=== PATIENT | male | born 1975 | race Caucasian/White ===

== ENCOUNTER → 2017-11-24 | Outpatient (CLI) | payer BC ==
--- NOTE | 2017-11-25 07:06 | US ---
EXAMINATION TYPE: US kidneys/renal and bladder DATE OF EXAM: 11/24/2017 COMPARISON: CT CLINICAL HISTORY: N13.30 Hydronephrosis. History of hydro, and recent left lithotripsy in October EXAM MEASUREMENTS: Right Kidney: 13.0 x 5.9 x 5.7 cm Left Kidney: 12.7 x 5.8 x 5.8 cm Larger pt body habitus, difficult to penetrate Right Kidney: Visualized portions appeared wnl Left Kidney: No evidence of hydro, layering calcs at upper pole= 3.2 cm. Again these are likely withi n a calyceal diverticulum. Bladder: wnl Bilateral Jets seen: Yes There is no evidence for hydronephrosis at this point in time. No nephrolithiasis is seen. No jeremiah s are identified. The urinary bladder is anechoic. Bilateral ureteral jets are seen. IMPRESSION: 1. No evidence of hydronephrosis bilaterally. The previously identified mild left hydronephrosis has resolved in the interim in comparison to the CT dated 10/30/2017. 2. 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
== END | disposition home or self-care (01) ==
LOC: RADUSWWP 16:05
PROVIDERS: ATTEND Urology
DX: N13.30 Unspecified hydronephrosis (principal)
CPT/HCPCS: 76770

== ENCOUNTER → 2018-01-04 | Outpatient (CLI) | payer BC ==
[2018-01-04 16:33] LABS: Calcium 9.7 mg/dL (8.4-10.2); Uric Acid 6.8 mg/dL (3.5-8.5)
== END | disposition home or self-care (01) ==
LOC: LABWHC1 15:35
PROVIDERS: ATTEND Urology
DX: N20.0 Calculus of kidney (principal)
CPT/HCPCS: 36415; 82310; 83970; 84550

== ENCOUNTER → 2018-05-03 | Outpatient (CLI) | payer BC ==
[2018-05-03 10:10] LABS: Basophils # (A) 0.1 k/uL (0-0.2); Basophils % (A) 1 %; Eosinophils # (A) 0.1 k/uL (0-0.7); Eosinophils % (A) 1 %; HCT 43.1 % (39.0-53.0); HGB 14.7 gm/dL (13.0-17.5); Lymphocytes # (A) 1.7 k/uL (1.0-4.8); Lymphocytes % (A) 20 %; MCH 30.8 pg (25.0-35.0); MCV 90.6 fL (80.0-100.0); Mean Platelet Volume 7.9; Monocytes # (A) 0.6 k/uL (0-1.0); Monocytes % (A) 7 %; Neutrophils # (A) 5.9 k/uL (1.3-7.7); Neutrophils % (A) 70 %; Platelet Count 273 k/uL (150-450); RBC 4.76 m/uL (4.30-5.90); WBC 8.4 k/uL (3.8-10.6)
[2018-05-03 17:57] LABS: Albumin 4.5 g/dL (3.80-4.90); Albumin/Globulin Ratio 1.8 (1.20-2.10); Anion Gap 9.7 mmol/L (4.00-12.00); Calcium 9.3 mg/dL (8.7-10.3); Carbon Dioxide 24.3 mmol/L (21.6-31.8); Globulin 2.5 g/dL (2.1-3.7); LDL Cholesterol,Calculated 117.6 mg/dL (0.0-131.0); Potassium 4.4 mmol/L (3.5-5.5); Total Bilirubin 0.6 mg/dL (0.3-1.2); VLDL Calculation 33.4 mg/dL (5.00-40.00)
== END | disposition home or self-care (01) ==
LOC: LABWHC1 08:44
PROVIDERS: ATTEND Family Medicine
DX: E78.2 Mixed hyperlipidemia (principal); E03.9 Hypothyroidism, unspecified; I10 Essential (primary) hypertension
CPT/HCPCS: 36415; 80053; 80061; 84443; 85025

== ENCOUNTER 2020-11-04 20:57 | Inpatient (IN) | payer OTHER ==
[2020-11-04] MEDS ORDERED: ACETAMINOPHEN TAB 325 MG TAB PO STA (21:38)
[2020-11-04] MEDS ORDERED: IBUPROFEN 600 MG TAB PO STA (21:38)
[2020-11-04] MEDS ORDERED: SODIUM CHLORIDE 0.9% 1,000 ML IV STA (22:20)
[2020-11-04] MEDS ORDERED: DEXAMETHASONE SOD PHOSPHATE 10 MG/ML 1 ML VIAL IV STA (22:20)
[2020-11-04] MEDS ORDERED: ACETAMINOPHEN TAB 500 MG TAB PO STA (22:21)
[2020-11-04] MEDS ORDERED: KETOROLAC 15 MG/ML 1 ML VIAL IVP STA (22:21)
--- NOTE | 2020-11-04 22:23 | ED ---
SOB HPI - General Chief Complaint: Shortness of Breath Stated Complaint: COVID+,SOB Time Seen by Provider: 11/04/20 22:20 Source: patient, RN notes reviewed, old records reviewed Mode of arrival: ambulatory Limitations: no limitations - History of Present Illness Initial Comments: This is a 45-year-old male DF for evaluation severe shortness of breath. Patient is wrong 10 days positive for coronavirus with increasing weakness and severe shortness of breath. Positive fever weakness not feeling well. MD Complaint: shortness of breath, cough, pain with inspiration -: days(s) (10) Radiation: back Severity: severe Severity scale (1-10): 9 Quality: dull, aching Consistency: constant Improves With: nothing Worsens With: nothing Known History Of: other (High blood pressure high cholesterol) Context: recent URI, recent illness Associated Symptoms: chest pain, fever Treatments Prior to Arrival: none - Related Data Home Medications Medication Instructions Recorded Confirmed Fenofibrate 130 mg PO DAILY 07/19/17 11/04/20 Levothyroxine Sodium 200 mcg PO DAILY 07/19/17 11/04/20 Losartan Potassium 100 mg PO DAILY 11/04/20 11/04/20 hydroCHLOROthiazide 25 mg PO DAILY 11/04/20 11/04/20 Allergies Allergy/AdvReac Type Severity Reaction Status Date / Time methimazole [From Tapazole] Allergy Rash/Hives Verified 11/04/20 23:20 Penicillins Allergy Rash/Hives Verified 11/04/20 23:20 Review of Systems ROS Statement: Those systems with pertinent positive or pertinent negative responses have been documented in the HPI. ROS Other: All systems not noted in ROS Statement are negative. Past Medical History Past Medical History: Hyperlipidemia, Hypertension, Thyroid Disorder Additional Past Medical History / Comment(s): Prer diabetes, allergic Rhinitis, Cholecysytis, Sarcoidosis History of Any Multi-Drug Resistant Organisms: None Reported Past Surgical History: Cholecystectomy, Hernia Repair Additional Past Surgical History / Comment(s): thyroid ablation, umbilical hernia repair Past Anesthesia/Blood Transfusion Reactions: No Reported Reaction Past Psychological History: No Psychological Hx Reported Smoking Status: Former smoker Past Alcohol Use History: None Reported Past Drug Use History: None Reported General Exam Limitations: no limitations General appearance: alert, anxious, in distress Head exam: Present: atraumatic, normocephalic, normal inspection Eye exam: Present: normal appearance, PERRL, EOMI. Absent: scleral icterus, conjunctival injection, periorbital swelling ENT exam: Present: normal exam, mucous membranes dry Neck exam: Present: normal inspection. Absent: tenderness, meningismus, lymphadenopathy Respiratory exam: Present: respiratory distress, chest wall tenderness, accessory muscle use, decreased breath sounds, prolonged expiratory. Absent: wheezes, rales, rhonchi, stridor Cardiovascular Exam: Present: normal rhythm, tachycardia, normal heart sounds. Absent: systolic murmur, diastolic murmur, rubs, gallop, clicks GI/Abdominal exam: Present: soft, normal bowel sounds. Absent: distended, tenderness, guarding, rebound, rigid Extremities exam: Present: normal inspection, full ROM, normal capillary refill. Absent: tenderness, pedal edema, joint swelling, calf tenderness Back exam: Present: normal inspection Neurological exam: Present: alert, oriented X3, CN II-XII intact Psychiatric exam: Present: normal affect, normal mood Skin exam: Present: warm, dry, intact, normal color. Absent: rash Course Vital Signs 11/04/20 21:32 Temperature 102.4 F H Pulse Rate 103 H Respiratory 22 Rate Blood Pressure 185/88 O2 Sat by Pulse 87 L Oximetry - Reevaluation(s) Reevaluation #1: 11/04/20 22:23 Medical records reviewed Reevaluation #2: 11/05/20 01:02 Patient has mild no improvement on supplemental O2 but oxygenation has improved Reevaluation #3: 11/05/20 01:03 Focal patient regarding results of findings questions answered - Consultations Consultation #1: Spoke with KEELEY shin for admission Medical Decision Making - Medical Decision Making 45 male DEL with severe coronavirus infection arms on x-ray patient to be admitted for severe coronavirus and pulmonary support. - Lab Data Result diagrams: 11/04/20 22:51 11/04/20 22:51 Lab Results 11/04/20 11/04/20 11/04/20 Range/Units 22:51 22:51 23:14 WBC 6.1 (3.8-10.6) k/uL RBC 4.60 (4.30-5.90) m/uL Hgb 13.9 (13.0-17.5) gm/dL Hct 40.3 (39.0-53.0) % MCV 87.6 (80.0-100.0) fL MCH 30.3 (25.0-35.0) pg MCHC 34.6 (31.0-37.0) g/dL RDW 12.4 (11.5-15.5) % Plt Count 222 (150-450) k/uL MPV 8.4 Neutrophils % 89 % Lymphocytes % 7 % Monocytes % 3 % Eosinophils % 0 % Basophils % 0 % Neutrophils # 5.4 (1.3-7.7) k/uL Lymphocytes # 0.5 L (1.0-4.8) k/uL Monocytes # 0.2 (0-1.0) k/uL Eosinophils # 0.0 (0-0.7) k/uL Basophils # 0.0 (0-0.2) k/uL PT 10.0 (9.0-12.0) sec INR 0.9 (<1.2) APTT 24.1 (22.0-30.0) sec Sodium 136 L (137-145) mmol/L Potassium 3.9 (3.5-5.1) mmol/L Chloride 101 (98-107) mmol/L Carbon Dioxide 26 (22-30) mmol/L Anion Gap 9 mmol/L BUN 11 (9-20) mg/dL Creatinine 0.70 (0.66-1.25) mg/dL Est GFR (CKD-EPI)AfAm >90 (>60 ml/min/1.73 sqM) Est GFR (CKD-EPI)NonAf >90 (>60 ml/min/1.73 sqM) Glucose 103 H (74-99) mg/dL Plasma Lactic Acid Fan (0.7-2.0) mmol/L Calcium 8.5 (8.4-10.2) mg/dL Phosphorus 3.6 (2.5-4.5) mg/dL Magnesium 1.9 (1.6-2.3) mg/dL Total Bilirubin 0.6 (0.2-1.3) mg/dL AST 115 H (17-59) U/L ALT 129 H (4-49) U/L Alkaline Phosphatase 50 (38-126) U/L Lactate Dehydrogenase 1435 H (313-618) U/L Troponin I (0.000-0.034) ng/mL C-Reactive Protein 18.7 H (<1.0) mg/dL Total Protein 6.7 (6.3-8.2) g/dL Albumin 3.6 (3.5-5.0) g/dL 11/04/20 11/04/20 Range/Units 23:14 23:14 WBC (3.8-10.6) k/uL RBC (4.30-5.90) m/uL Hgb (13.0-17.5) gm/dL Hct (39.0-53.0) % MCV (80.0-100.0) fL MCH (25.0-35.0) pg MCHC (31.0-37.0) g/dL RDW (11.5-15.5) % Plt Count (150-450) k/uL MPV Neutrophils % % Lymphocytes % % Monocytes % % Eosinophils % % Basophils % % Neutrophils # (1.3-7.7) k/uL Lymphocytes # (1.0-4.8) k/uL Monocytes # (0-1.0) k/uL Eosinophils # (0-0.7) k/uL Basophils # (0-0.2) k/uL PT (9.0-12.0) sec INR (<1.2) APTT (22.0-30.0) sec Sodium (137-145) mmol/L Potassium (3.5-5.1) mmol/L Chloride (98-107) mmol/L Carbon Dioxide (22-30) mmol/L Anion Gap mmol/L BUN (9-20) mg/dL Creatinine (0.66-1.25) mg/dL Est GFR (CKD-EPI)AfAm (>60 ml/min/1.73 sqM) Est GFR (CKD-EPI)NonAf (>60 ml/min/1.73 sqM) Glucose (74-99) mg/dL Plasma Lactic Acid Fan 1.1 (0.7-2.0) mmol/L Calcium (8.4-10.2) mg/dL Phosphorus (2.5-4.5) mg/dL Magnesium (1.6-2.3) mg/dL Total Bilirubin (0.2-1.3) mg/dL AST (17-59) U/L ALT (4-49) U/L Alkaline Phosphatase (38-126) U/L Lactate Dehydrogenase (313-618) U/L Troponin I <0.012 (0.000-0.034) ng/mL C-Reactive Protein (<1.0) mg/dL Total Protein (6.3-8.2) g/dL Albumin (3.5-5.0) g/dL - Radiology Data Radiology results: pending, report reviewed (Chest x-rays positive for coronavirus type changes, ARDS symptoms.), image reviewed Critical Care Time Critical Care Time: Yes Total Critical Care Time: 31 Disposition Clinical Impression: Coronavirus infection, Pneumonia due to COVID-19 virus, Acute respiratory failure, Hypoxia Disposition: ADMITTED IP TO THIS [facility] Condition: Serious Is patient prescribed a controlled substance at d/c from ED?: No Referrals: Marisol Shannon DO [Primary Care Provider] - 1-2 days
--- NOTE | 2020-11-04 22:43 | XR ---
EXAMINATION TYPE: XR chest 2V DATE OF EXAM: 11/04/2020 COMPARISON: 08/28/2009 HISTORY: Difficulty breathing TECHNIQUE: 2 views FINDINGS: There is patchy bilateral pulmonary interstitial and airspace infiltrates. Heart size is no rmal. There is no pleural effusion. IMPRESSION: There is new bilateral extensive pneumonia compared to old exam. Normal heart.
[2020-11-04 23:12] LABS: Basophils % (A) 0 %; Eosinophils % (A) 0 %; HCT 40.3 % (39.0-53.0); HGB 13.9 gm/dL (13.0-17.5); Lymphocytes # (A) 0.5 k/uL (1.0-4.8); Lymphocytes % (A) 7 %; MCH 30.3 pg (25.0-35.0); MCHC 34.6 g/dL (31.0-37.0); MCV 87.6 fL (80.0-100.0); Mean Platelet Volume 8.4; Monocytes # (A) 0.2 k/uL (0-1.0); Monocytes % (A) 3 %; Neutrophils # (A) 5.4 k/uL (1.3-7.7); Neutrophils % (A) 89 %; Platelet Count 222 k/uL (150-450); RDW 12.4 % (11.5-15.5); WBC 6.1 k/uL (3.8-10.6)
[2020-11-04 23:42] LABS: INR 0.9 (<1.2); Partial Thromboplastin Time 24.1 sec (22.0-30.0)
[2020-11-05 00:22] LABS: ALT 129 U/L (4-49); AST 115 U/L (17-59); African American GFR (CKD) >90 (>60 ml/min/1.73 sqM); Albumin 3.6 g/dL (3.5-5.0); Alkaline Phosphatase 50 U/L (38-126); Anion Gap 9 mmol/L; Blood Urea Nitrogen 11 mg/dL (9-20); Calcium 8.5 mg/dL (8.4-10.2); Carbon Dioxide 26 mmol/L (22-30); Chloride 101 mmol/L (98-107); Glucose 103 mg/dL (74-99); LDH 1435 U/L (313-618); Magnesium 1.9 mg/dL (1.6-2.3); Non-African American GFR(CKD) >90 (>60 ml/min/1.73 sqM); Phosphorus 3.6 mg/dL (2.5-4.5); Potassium 3.9 mmol/L (3.5-5.1); Sodium 136 mmol/L (137-145); Total Bilirubin 0.6 mg/dL (0.2-1.3); Total Protein 6.7 g/dL (6.3-8.2)
[2020-11-05 00:37] LABS: C Reactive Protein 18.7 mg/dL (<1.0)
[2020-11-05] MEDS ORDERED: ACETAMINOPHEN TAB 325 MG TAB PO PRN (00:59)
[2020-11-05] MEDS ORDERED: NALOXONE 0.4 MG/ML 1 ML VIAL IV PRN (00:59)
[2020-11-05] MEDS ORDERED: MORPHINE SULFATE 4 MG/ML SYRINGE IV PRN (00:59)
[2020-11-05] MEDS ORDERED: ONDANSETRON 4 MG/2 ML VIAL IVP PRN (00:59)
--- NOTE | 2020-11-05 02:35 | CT ---
EXAM: CT Angiography Chest With Intravenous Contrast CLINICAL HISTORY: ITS.REASON CT Reason: pe TECHNIQUE: Axial computed tomographic angiography images of the chest with intravenous contrast. CTDI is 26.07 mGy and DLP is 749.4 mGy-cm. This CT exam was performed using one or more of the following dose reduction techniques: automated exposure control, adjustment of the mA and/or kV according to patient size, and/or use of iterative reconstruction technique. MIP reconstructed images were created and reviewed. COMPARISON: Chest x-ray from November 04, 2020 FINDINGS: Pulmonary arteries: The pulmonary arterial tree is well opacified with contrast. No pulmonary emboli are identified. Aorta: The thoracic aorta is nondilated. There is no aneurysm or dissection. Lungs: There are moderate scattered patchy groundglass opacities and interstitial infiltrates throughout the mid to lower lungs bilaterally suggesting Covid 19 pneumonia. Pleural space: Unremarkable. No significant effusion. No pneumothorax. Heart: Unremarkable. No cardiomegaly. No significant pericardial effusion. No evidence of RV dysfunction. Mediastinum: Bilateral hilar and mediastinal lymphadenopathy is present measuring up to 2.3 cm in short axis diameter. Bones/joints: No acute fracture. No dislocation. Soft tissues: Unremarkable. Lymph nodes: Hilar and mediastinal lymphadenopathy. Gallbladder and bile ducts: Limited images of the upper abdomen demonstrate severe fatty infiltration of the liver and previous cholecystectomy. IMPRESSION: 1. There are moderate scattered patchy groundglass opacities and interstitial infiltrates throughout the mid to lower lungs bilaterally suggesting Covid 19 pneumonia. 2. Bilateral hilar and mediastinal lymphadenopathy is present measuring up to 2.3 cm in short axis diameter. 3. No evidence of pulmonary embolism or acute aortic abnormality.
[2020-11-05] MEDS: SODIUM CHLORIDE 0.9% 1,000 ML IV SCH ×3 (03:09→20:10)
[2020-11-05] MEDS ORDERED: ZINC SULFATE 220 MG CAP PO SCH (09:00)
--- NOTE | 2020-11-05 10:05 | P.CNPUL ---
History of Present Illness Consult date: 11/05/20 Requesting physician: Erasto Snow Reason for consult: dyspnea, abnormal CXR/CT Chief complaint: Shortness of breath, headache, cough History of present illness: This is a very pleasant 45-year-old gentleman who follows with Dr. Foote as his primary care provider. He has a history of hyperlipidemia, hypertension, hypothyroidism, sarcoidosis previously treated by Dr. Rodriguez in 2009 with no pu lmonary symptoms since then. On October 25 patient developed a headache, loss of smell, worsening shortness of breath. He was tested positive for COVID-19 on 10/27/2020. His shortness of breath has progressed and gotten worse and he presented here to the emergency room yesterday. Chest x-ray reveals bilateral extensive pneumonia. CT angiogram ruled out pulmonary embolism. There is moderate scattered patchy groundglass opacities and interstitial infiltrates consistent with COVID-19 pneumonia. Suspect reactive bilateral hilar and mediastinal lymphadenopathy measuring up to 2.3 cm. He is seen today in consultation in the emergency room. He is currently sitting up on the stretcher. Awake and alert. In mild respiratory distress. Requiring 6 L high flow nasal cannula to maintain O2 saturation in the low 90s. T-max of 102.4. White count 6.1. Hemoglobin 13.9. Lymphocytes 0.5. D-dimer 0.76. Sodium 136. Potassium 3.9. Creatinine 0.70. Glucose 103. AST 115. ALT 129. LDH 1435. C-reactive protein 18.7. Troponin negative 1. He has been initiated on dexamethasone, Lovenox, vitamin supplements. 0.9 normal saline at 100 ML's per hour. Review of Systems REVIEW OF SYSTEMS: CONSTITUTIONAL: Denies any recent significant weight loss or weight gain. EYES: Denies change in vision. EARS, NOSE, MOUTH, THROAT: Positive for headaches, loss of smell. CARDIOVASCULAR: Denies chest pain, palpitations or syncopal episodes. RESPIRATORY: Positive for shortness of breath, cough, congestion or hemoptysis. GASTROINTESTINAL: Denies change in appetite, denies abdominal pain GENITOURINARY: Denies hematuria, denies infections. MUSKULOSKELETAL: Denies pain, denies swelling. INTEGUMENTARY: Denies rash, denies eczema. NEUROLOGICAL: Denies recent memory loss, no recent seizure activity. PSYCHIATRIC: Denies anxiety, denies depression. HEMATOLOGIC/LYMPHATIC: Denies anemia, denies enlarged lymph nodes. Past Medical History Past Medical History: Hyperlipidemia, Hypertension, Thyroid Disorder Additional Past Medical History / Comment(s): Prer diabetes, allergic Rhinitis, Cholecysytis, Sarcoidosis History of Any Multi-Drug Resistant Organisms: None Reported Past Surgical History: Cholecystectomy, Hernia Repair Additional Past Surgical History / Comment(s): thyroid ablation, umbilical hernia repair Past Anesthesia/Blood Transfusion Reactions: No Reported Reaction Past Psychological History: No Psychological Hx Reported Smoking Status: Former smoker Past Alcohol Use History: None Reported Past Drug Use History: None Reported Medications and Allergies Home Medications Medication Instructions Recorded Confirmed Type Fenofibrate 130 mg PO DAILY 07/19/17 11/04/20 History Levothyroxine Sodium 200 mcg PO DAILY 07/19/17 11/04/20 History Losartan Potassium 100 mg PO DAILY 11/04/20 11/04/20 History hydroCHLOROthiazide 25 mg PO DAILY 11/04/20 11/04/20 History Allergies Allergy/AdvReac Type Severity Reaction Status Date / Time methimazole [From Tapazole] Allergy Rash/Hives Verified 11/04/20 23:20 Penicillins Allergy Rash/Hives Verified 11/04/20 23:20 Physical Exam Vitals: Vital Signs Temp Pulse Resp BP Pulse Ox 11/05/20 06:00 97.8 F 87 20 133/89 93 L 11/05/20 05:00 88 18 93 L 11/05/20 04:00 69 22 91 L 11/05/20 03:00 79 22 126/79 93 L 11/05/20 02:00 96 11/05/20 01:36 97.4 F L 82 18 137/81 100 11/04/20 21:32 102.4 F H 103 H 22 185/88 87 L Intake and Output 11/04/20 11/05/20 11/05/20 22:59 06:59 14:59 Other: Weight 115.666 kg GENERAL EXAM: Alert, very pleasant 45-year-old gentleman, on 6 L nasal cannula, fairly comfortable in no apparent distress. HEAD: Normocephalic. EYES: Normal reaction of pupils, equal size. NOSE: Clear with pink turbinates. THROAT: No erythema or exudates. NECK: No masses, no JVD. CHEST: No chest wall deformity. LUNGS: Equal air entry with crackles in the posterior bases. CVS: S1 and S2 normal with no audible murmur, regular rhythm. ABDOMEN: No hepatosplenomegaly, normal bowel sounds, no guarding or rigidity. SPINE: No scoliosis or deformity SKIN: No rashes CENTRAL NERVOUS SYSTEM: No focal deficits, tone is normal in all 4 extremities. EXTREMITIES: There is no peripheral edema. No clubbing, no cyanosis. Peripheral pulses are intact. Results - Laboratory Findings CBC and BMP: 11/04/20 22:51 11/04/20 22:51 PT/INR, D-dimer PT 10.0 sec (9.0-12.0) 11/04/20 23:14 INR 0.9 (<1.2) 11/04/20 23:14 D-Dimer 0.76 mg/L FEU (<0.60) H 11/05/20 09:03 Abnormal lab findings: Abnormal Labs 11/04/20 11/04/20 11/05/20 22:51 22:51 09:03 Lymphocytes # 0.5 L D-Dimer 0.76 H Sodium 136 L Glucose 103 H AST 115 H ALT 129 H Lactate Dehydrogenase 1435 H C-Reactive Protein 18.7 H - Diagnostic Findings Chest x-ray: image reviewed CT scan - chest: image reviewed Assessment and Plan Assessment: 1 Acute hypoxemic respiratory failure secondary to acute COVID-19 pneumonia. Outside the window for Remdesivir 2 Elevated inflammatory markers secondary to above 3 Mild transaminitis secondary to above 4 History of sarcoidosis, inactive and stable 5 Hypertension 6 Hypothyroidism 7 Hyperlipidemia Plan: The patient was seen and evaluated by Dr. Rodriguez Chest x-ray, CAT scans and labs reviewed Continue Lovenox, Decadron, vitamin supplements Follow-up inflammatory markers in a.m. Titrate the FiO2 as tolerated We'll continue to follow and make further recommendations based on his clinical status I, the cosigning physician, performed a history & physical examination of the patient. Lungs sounds are clear bilateral posterior bases. Maintaining good O2 saturations in the 90s on 6 L high flow nasal cannula. I discussed the assessment and plan of care with my nurse practitioner, Lizzie Rodriguez. I attest to the above consultation as dictated by her. Time with Patient: Greater than 30
[2020-11-05 10:09] LABS: C Reactive Protein 17.6 mg/dL (<1.0)
[2020-11-05] MEDS: ASCORBIC ACID 500 MG TAB PO SCH ×2 (10:42→20:10)
[2020-11-05] MEDS: dexAMETHasone 2 MG TAB PO SCH (10:42)
[2020-11-05] MEDS: CHOLECALCIFEROL 25 MCG (1000 IU) TABLET PO SCH (10:45)
[2020-11-05] MEDS: ENOXAPARIN 40 MG/0.4 ML SYRINGE SQ SCH (10:45)
[2020-11-05] MEDS: FAMOTIDINE 20 MG TAB PO SCH ×2 (12:04→20:10)
--- NOTE | 2020-11-05 13:05 | P.HPIM ---
History of Present Illness Patient is a 45-year-old pleasant male came in with complaints of cough and shortness of breath for about 10 days and patient was diagnosed with COVID-19 on 27 of October. Patient can use to get worse because of which came to ER and chest x-ray revealed bilateral extensive pneumonia CT angiogram was done in the pulmonary embolism was ruled out patient does have reactive hilar lymphadenopathy as well. Patient is presently on 6 L of oxygen with elevated inflammatory markers and liver liver enzymes and a negative troponin d-dimer of 0.76. Patient was started on Decadron Lovenox vitamin supplements and normal saline. Patient also had some diarrhea yesterday Review of Systems REVIEW OF SYSTEMS: CONSTITUTIONAL: As mentioned in HPI HEENT: No recent visual problems or hearing problems. Denied any sore throat. CARDIOVASCULAR: No chest pain, orthopnea, PND, no palpitations, no syncope. PULMONARY: no hemoptysis. GASTROINTESTINAL: no nausea, no vomiting, no abdominal pain. NEUROLOGICAL: No headaches, no weakness, no numbness. HEMATOLOGICAL: Denies any bleeding or petechiae. GENITOURINARY: Denies any burning micturition, frequency, or urgency. MUSCULOSKELETAL/RHEUMATOLOGICAL: Denies any joint pain, swelling, or any muscle pain. ENDOCRINE: Denies any polyuria or polydipsia. The rest of the 14-point review of systems is negative. Past Medical History Past Medical History: Hyperlipidemia, Hypertension, Thyroid Disorder Additional Past Medical History / Comment(s): Prer diabetes, allergic Rhinitis, Cholecysytis, Sarcoidosis History of Any Multi-Drug Resistant Organisms: None Reported Past Surgical History: Cholecystectomy, Hernia Repair Additional Past Surgical History / Comment(s): thyroid ablation, umbilical hernia repair Past Anesthesia/Blood Transfusion Reactions: No Reported Reaction Past Psychological History: No Psychological Hx Reported Smoking Status: Former smoker Past Alcohol Use History: None Reported Past Drug Use History: None Reported Medications and Allergies Home Medications Medication Instructions Recorded Confirmed Type Fenofibrate 130 mg PO DAILY 07/19/17 11/04/20 History Levothyroxine Sodium 200 mcg PO DAILY 07/19/17 11/04/20 History Losartan Potassium 100 mg PO DAILY 11/04/20 11/04/20 History hydroCHLOROthiazide 25 mg PO DAILY 11/04/20 11/04/20 History Allergies Allergy/AdvReac Type Severity Reaction Status Date / Time methimazole [From Tapazole] Allergy Rash/Hives Verified 11/04/20 23:20 Penicillins Allergy Rash/Hives Verified 11/04/20 23:20 Physical Exam Vitals: Vital Signs Temp Pulse Pulse Resp BP BP Pulse Ox 11/05/20 12:26 98.2 F 81 24 159/88 86 L 11/05/20 11:59 97.6 F 88 16 144/90 91 L 11/05/20 10:41 97.6 F 88 16 144/90 90 L 11/05/20 06:00 97.8 F 87 20 133/89 93 L 11/05/20 05:00 88 18 93 L 11/05/20 04:00 69 22 91 L 11/05/20 03:00 79 22 126/79 93 L 11/05/20 02:00 96 11/05/20 01:36 97.4 F L 82 18 137/81 100 11/04/20 21:32 102.4 F H 103 H 22 185/88 87 L Intake and Output 11/04/20 11/05/20 11/05/20 22:59 06:59 14:59 Other: Weight 115.666 kg 115.666 kg PHYSICAL EXAMINATION: GENERAL: The patient is alert and oriented x3, not in any acute distress. Obese HEENT: Pupils are round and equally reacting to light. EOMI. No scleral icterus. No conjunctival pallor. Normocephalic, atraumatic. No pharyngeal erythema. No thyromegaly. CARDIOVASCULAR: S1 and S2 present. No murmurs, rubs, or gallops. PULMONARY: Chest is clear to auscultation, no wheezing or crackles. ABDOMEN: Soft, nontender, nondistended, normoactive bowel sounds. No palpable organomegaly. MUSCULOSKELETAL: No joint swelling or deformity. EXTREMITIES: No cyanosis, clubbing, or pedal edema. NEUROLOGICAL: Gross neurological examination did not reveal any focal deficits. SKIN: No rashes. Note: Because of COVID 19 isolation, some of the history and physical exam findings are indirect and obtained from nursing staff, and other physician examinations to avoid unnecessary contact with the patient. Results CBC & Chem 7: 11/04/20 22:51 11/04/20 22:51 Labs: Abnormal Lab Results - Last 24 Hours (Table) 11/04/20 11/04/20 11/05/20 Range/Units 22:51 22:51 09:03 Lymphocytes # 0.5 L (1.0-4.8) k/uL D-Dimer 0.76 H (<0.60) mg/L FEU Sodium 136 L (137-145) mmol/L Glucose 103 H (74-99) mg/dL AST 115 H (17-59) U/L ALT 129 H (4-49) U/L Lactate Dehydrogenase 1435 H (313-618) U/L C-Reactive Protein 18.7 H (<1.0) mg/dL 11/05/20 Range/Units 09:03 Lymphocytes # (1.0-4.8) k/uL D-Dimer (<0.60) mg/L FEU Sodium (137-145) mmol/L Glucose (74-99) mg/dL AST (17-59) U/L ALT (4-49) U/L Lactate Dehydrogenase 1254 H (313-618) U/L C-Reactive Protein 17.6 H (<1.0) mg/dL Thrombosis Risk Factor Assmnt - Choose All That Apply Each Factor Represents 1 point: Age 41-60 years Thrombosis Risk Factor Assessment Total Risk Factor Score: 1 Thrombosis Risk Factor Assessment Level: Low Risk Assessment and Plan Plan: -Acute hypoxic respiratory failure secondary to COVID-19 pneumonia: Patient is outside of the window for from this event and patient is presently on Decadron, vitamins. -Elevated liver enzymes her transaminitis secondary to COVID-19 -Hypertension -Hypothyroidism -Hyperlipidemia -History of sarcoidosis. -Due to prophylaxis with history of prophylaxis with Protonix
[2020-11-06] MEDS: SODIUM CHLORIDE 0.9% 1,000 ML IV SCH ×2 (05:26→17:22)
[2020-11-06] MEDS: CHOLECALCIFEROL 25 MCG (1000 IU) TABLET PO SCH (07:48)
[2020-11-06] MEDS: ASCORBIC ACID 500 MG TAB PO SCH ×2 (07:48→22:40)
[2020-11-06] MEDS: FAMOTIDINE 20 MG TAB PO SCH ×2 (07:49→22:40)
[2020-11-06] MEDS: ENOXAPARIN 40 MG/0.4 ML SYRINGE SQ SCH (07:50)
[2020-11-06] MEDS: dexAMETHasone 2 MG TAB PO SCH (07:50)
[2020-11-06] MEDS: ZINC SULFATE 220 MG CAP PO SCH (07:54)
[2020-11-06 10:33] LABS: Basophils # (A) 0.01 X 10*3/uL (0.00-0.10); Basophils % (A) 0.1 %; Eosinophils # (A) 0 X 10*3/uL (0.04-0.35); Eosinophils % (A) 0 %; HCT 36.6 % (39.6-50.0); Lymphocytes # (A) 0.69 X 10*3/uL (0.90-5.00); Lymphocytes % (A) 4.7 %; MCH 29.6 pg (27.0-32.0); MCHC 32.8 g/dL (32.0-37.0); MCV 90.4 fL (80.0-97.0); Mean Platelet Volume 11.2 fL (9.5-12.2); Monocytes # (A) 0.56 X 10*3/uL (0.20-1.00); Monocytes % (A) 3.8 %; Neutrophils # (A) 13.19 X 10*3/uL (1.80-7.70); Neutrophils % (A) 90.6 %; Platelet Count 293 X 10*3/uL (140-440); RBC 4.05 X 10*6/uL (4.40-5.60); RDW 13.4 % (11.5-14.5); WBC 14.56 X 10*3/uL (4.50-10.00)
--- NOTE | 2020-11-06 15:16 | P.PN ---
Subjective 45-year-old male admitted for Covid 19 pneumonia, out of window for Remdesivir. Patient respiratory status has worsened and the patient is presently on 9 L as opposed to 6 L of oxygen as today patient feels little bit better clinically. Still bit short of breath. Constitutional: Denied any fatigue denied any fever. Cardio vascular: denied any chest pain, palpitations Gastrointestinal denied any nausea vomiting Pulmonary: As mentioned in the interval history Neurologic denied any new focal deficits All inpatient medications were reviewed and appropriate changes in these medications as dictated in the interval history and assessment and plan. Objective - Vital Signs Vital signs: Vital Signs Temp 98.2 F 11/06/20 14:00 Pulse 85 11/06/20 14:00 Resp 25 H 11/06/20 14:00 BP 163/85 11/06/20 14:00 Pulse Ox 92 L 11/06/20 14:00 Intake & Output 11/05/20 11/06/20 11/06/20 18:59 06:59 18:59 Output Total 450 Balance -450 Output: Urine 450 Other: Voiding Method Toilet Toilet # Voids 1 1 - Exam PHYSICAL EXAMINATION: GENERAL: The patient is alert and oriented x3, not in any acute distress. Obese HEENT: Pupils are round and equally reacting to light. EOMI. No scleral icterus. No conjunctival pallor. Normocephalic, atraumatic. No pharyngeal erythema. No thyromegaly. CARDIOVASCULAR: S1 and S2 present. No murmurs, rubs, or gallops. PULMONARY: Chest is clear to auscultation, no wheezing or crackles. ABDOMEN: Soft, nontender, nondistended, normoactive bowel sounds. No palpable organomegaly. MUSCULOSKELETAL: No joint swelling or deformity. EXTREMITIES: No cyanosis, clubbing, or pedal edema. NEUROLOGICAL: Gross neurological examination did not reveal any focal deficits. SKIN: No rashes. - Labs CBC & Chem 7: 11/06/20 06:55 11/04/20 22:51 Labs: Abnormal Lab Results - Last 24 Hours (Table) 11/06/20 11/06/20 Range/Units 06:55 06:55 WBC 14.56 H (4.50-10.00) X 10*3/uL RBC 4.05 L (4.40-5.60) X 10*6/uL Hgb 12.0 L (13.0-17.0) g/dL Hct 36.6 L (39.6-50.0) % Immature Gran # 0.11 H (0.00-0.04) X 10*3/uL Neutrophils # 13.19 H (1.80-7.70) X 10*3/uL Lymphocytes # 0.69 L (0.90-5.00) X 10*3/uL Eosinophils # 0 L (0.04-0.35) X 10*3/uL D-Dimer 1.18 H (<0.60) mg/L FEU Assessment and Plan Plan: -Acute hypoxic respiratory failure secondary to COVID-19 pneumonia: Patient is outside of the window for from this event and patient is presently on Decadron, vitamins. Presently anion liters of toxin worsened compared to yesterday. -Elevated liver enzymes her transaminitis secondary to COVID-19, repeat CMP tomorrow -Hypertension -Hypothyroidism -Hyperlipidemia -History of sarcoidosis. -Due to prophylaxis with history of prophylaxis with Protonix
--- NOTE | 2020-11-06 15:37 | P.PN ---
Subjective Progress Note Date: 11/06/20 Principal diagnosis: Coronavirus pneumonia. This is a very pleasant 45-year-old gentleman who follows with Dr. Foote as his primary care provider. He has a history of hyperlipidemia, hypertension, hypothyroidism, sarcoidosis previously treated by Dr. Rodriguez in 2009 with no pul monary symptoms since then. On October 25 patient developed a headache, loss of smell, worsening shortness of breath. He was tested positive for COVID-19 on 10/27/2020. His shortness of breath has progressed and gotten worse and he presented here to the emergency room yesterday. Chest x-ray reveals bilateral extensive pneumonia. CT angiogram ruled out pulmonary embolism. There is moderate scattered patchy groundglass opacities and interstitial infiltrates consistent with COVID-19 pneumonia. Suspect reactive bilateral hilar and mediastinal lymphadenopathy measuring up to 2.3 cm. He is seen today in consultation in the emergency room. He is currently sitting up on the stretcher. Awake and alert. In mild respiratory distress. Requiring 6 L high flow nasal cannula to maintain O2 saturation in the low 90s. T-max of 102.4. White count 6.1. Hemoglobin 13.9. Lymphocytes 0.5. D-dimer 0.76. Sodium 136. Potassium 3.9. Creatinine 0.70. Glucose 103. AST 115. ALT 129. LDH 1435. C-reactive protein 18.7. Troponin negative 1. He has been initiated on dexamethasone, Lovenox, vitamin supplements. 0.9 normal saline at 100 ML's per hour. Progress note dated 11/06/2020. 45-year-old male seen yesterday in consultation. The patient has a history of hyperlipidemia, hypertension, hypothyroidism, and inactive sarcoidosis. The patient was seen in the emergency department yesterday. He came with increasing shortness of breath. He tested positive for coronavirus on 10/27/2000. CT angiogram ruled out pulmonary embolism. It did show extensive bilateral infiltrates. Chest x-ray was also abnormal. Currently laboratory data includes a white count of 14.56, hemoglobin 12, hematocrit 36.6, and platelet count 393,000. D-dimer was 1.18. The patient is outside the window for REM, and was started on dexamethasone, Lovenox, vitamin C, vitamin D3, and zinc. Currently, he's on 9 L high flow nasal O2. His saturations are in the low 90s. Objective - Vital Signs Vital signs: Vital Signs Temp 98.2 F 11/06/20 14:00 Pulse 85 11/06/20 14:00 Resp 25 H 11/06/20 14:00 BP 163/85 11/06/20 14:00 Pulse Ox 92 L 11/06/20 14:00 Intake & Output 11/05/20 11/06/20 11/06/20 18:59 06:59 18:59 Output Total 450 Balance -450 Output: Urine 450 Other: Voiding Method Toilet Toilet # Voids 1 1 - Exam No acute distress, oriented 3. Currently on 9 L high flow nasal O2. Saturations 92-94%. HEENT examination is grossly unremarkable. Neck supple. Full range of motion. No adenopathy thyromegaly or neck vein distention. Cardiovascular examination reveals regular rhythm rate. S1-S2 normal. No S3 or S4. No discernible murmur noted. Heart sounds are distant. Heart rate 85 bpm. Lungs reveal bilateral coarse scattered rhonchi and bilateral crackles. No wheezes. Breath sounds equal bilaterally. Breath sounds are diminished throughout. Abdomen soft bowel sounds are heard. No masses or tenderness. Extremities are intact. No cyanosis clubbing or edema. Skin is without rash or lesion. Neurologic examination is brief but nonfocal. - Labs CBC & Chem 7: 11/06/20 06:55 11/04/20 22:51 Labs: Abnormal Lab Results - Last 24 Hours (Table) 11/06/20 11/06/20 Range/Units 06:55 06:55 WBC 14.56 H (4.50-10.00) X 10*3/uL RBC 4.05 L (4.40-5.60) X 10*6/uL Hgb 12.0 L (13.0-17.0) g/dL Hct 36.6 L (39.6-50.0) % Immature Gran # 0.11 H (0.00-0.04) X 10*3/uL Neutrophils # 13.19 H (1.80-7.70) X 10*3/uL Lymphocytes # 0.69 L (0.90-5.00) X 10*3/uL Eosinophils # 0 L (0.04-0.35) X 10*3/uL D-Dimer 1.18 H (<0.60) mg/L FEU Assessment and Plan Assessment: 1 Acute hypoxemic respiratory failure secondary to acute COVID-19 pneumonia. Outside the window for Remdesivir. 2 Elevated inflammatory markers secondary to above. 3 Mild transaminitis secondary to above. 4 History of sarcoidosis, inactive and stable. 5 Hypertension. 6 Hypothyroidism. 7 Hyperlipidemia. Plan: Plan dated 11/06/2020. Even though the patient's on 9 L O2, he appears relatively stable. Chest x-ray, and CAT scans were reviewed yesterday. He continues on vitamin C, vitamin D3, and zinc. In addition, he remains on Lovenox and Decadron. He was outside the window for REM. Additional recommendations and suggestions are forthcoming. Prognosis is guarded. Labs, x-rays and medications are all reviewed. We will continue to follow make recommendations where appropriate. Time with Patient: Less than 30
[2020-11-06] MEDS: BENZONATATE 100 MG CAP PO SCH ×2 (17:22→22:40)
[2020-11-06 22:16] LABS: African American GFR (CKD) 130.2 (60.0-200.0); Albumin 3.5 g/dL (3.80-4.90); Albumin/Globulin Ratio 1.67 (1.60-3.17); BUN/Creat Ratio 25.71 Ratio (12.00-20.00); C Reactive Protein 7.8 mg/dL (0.0-0.8); Calcium 8.2 mg/dL (8.7-10.3); Globulin 2.1 g/dL (1.6-3.3); Non-African American GFR(CKD) 112.4 (60.0-200.0); Phosphorus 4.7 mg/dL (2.4-5.1); Potassium 4.2 mmol/L (3.5-5.5); Total Bilirubin 0.5 mg/dL (0.3-1.2); Total Protein 5.6 g/dL (6.2-8.2)
[2020-11-06] MEDS: IBUPROFEN 400 MG TAB PO PRN (22:59)
[2020-11-07] MEDS: SODIUM CHLORIDE 0.9% 1,000 ML IV SCH ×2 (05:35→12:24)
[2020-11-07] MEDS: ENOXAPARIN 40 MG/0.4 ML SYRINGE SQ SCH (09:04)
[2020-11-07] MEDS: dexAMETHasone 2 MG TAB PO SCH (09:04)
[2020-11-07] MEDS: BENZONATATE 100 MG CAP PO SCH ×3 (09:04→22:33)
[2020-11-07] MEDS: CHOLECALCIFEROL 25 MCG (1000 IU) TABLET PO SCH (09:04)
[2020-11-07] MEDS: ZINC SULFATE 220 MG CAP PO SCH (09:04)
[2020-11-07] MEDS: ASCORBIC ACID 500 MG TAB PO SCH ×2 (09:04→22:33)
[2020-11-07] MEDS: FAMOTIDINE 20 MG TAB PO SCH ×2 (09:04→22:33)
[2020-11-07] MEDS: IBUPROFEN 400 MG TAB PO PRN ×2 (09:05→22:33)
--- NOTE | 2020-11-07 12:34 | P.PN ---
Subjective Progress Note Date: 11/07/20 Principal diagnosis: COVID-19 pneumonia This is a very pleasant 45-year-old gentleman who follows with Dr. Foote as his primary care provider. He has a history of hyperlipidemia, hypertension, hypothyroidism, sarcoidosis previously treated by Dr. Rodriguez in 2009 with no pulmonary symptoms since then. On October 25 patient developed a headache, loss of smell, worsening shortness of breath. He was tested positive for COVID-19 on 10/27/2020. His shortness of breath has progressed and gotten worse and he presented here to the emergency room yesterday. Chest x-ray reveals bilateral extensive pneumonia. CT angiogram ruled out pulmonary embolism. There is moderate scattered patchy groundglass opacities and interstitial infiltrates consistent with COVID-19 pneumonia. Suspect reactive bilateral hilar and mediastinal lymphadenopathy measuring up to 2.3 cm. He is seen today in consultation in the emergency room. He is currently sitting up on the stretcher. Awake and alert. In mild respiratory distress. Requiring 6 L high flow nasal cannula to maintain O2 saturation in the low 90s. T-max of 102.4. White count 6.1. Hemoglobin 13.9. Lymphocytes 0.5. D-dimer 0.76. Sodium 136. Potassium 3.9. Creatinine 0.70. Glucose 103. AST 115. ALT 129. LDH 1435. C-reactive protein 18.7. Troponin negative 1. He has been initiated on dexamethasone, Lovenox, vitamin supplements. 0.9 normal saline at 100 ML's per hour. Progress note dated 11/06/2020. 45-year-old male seen yesterday in consultation. The patient has a history of hyperlipidemia, hypertension, hypothyroidism, and inactive sarcoidosis. The patient was seen in the emergency department yesterday. He came with increasing shortness of breath. He tested positive for coronavirus on 10/27/2000. CT angiogram ruled out pulmonary embolism. It did show extensive bilateral infiltrates. Chest x-ray was also abnormal. Currently laboratory data includes a white count of 14.56, hemoglobin 12, hematocrit 36.6, and platelet count 393,000. D-dimer was 1.18. The patient is outside the window for REM, and was started on dexamethasone, Lovenox, vitamin C, vitamin D3, and zinc. Currently, he's on 9 L high flow nasal O2. His saturations are in the low 90s. The patient is seen today 11/07/2020 in follow-up on the regular medical floor. He is currently sitting up in bed. Awake and alert in no acute distress. He is feeling somewhat weak and tired still. Dyspneic with minimal exertion. M aintaining O2 saturations in the 90s on 10 L high flow nasal cannula. No new labs today. He is continued on vitamin supplements, dexamethasone, Lovenox. Objective - Vital Signs Vital signs: Vital Signs Temp 97.9 F 11/07/20 09:51 Pulse 75 11/07/20 09:51 Resp 18 11/07/20 09:51 BP 153/89 11/07/20 09:51 Pulse Ox 92 L 11/07/20 09:51 Intake & Output 11/06/20 11/07/20 11/07/20 18:59 06:59 18:59 Output Total 500 Balance -500 Output: Urine 500 Other: Voiding Method Toilet Toilet Toilet # Voids 4 - Exam GENERAL EXAM: Alert, very pleasant 45-year-old gentleman, on 8 L nasal cannula, comfortable in no apparent distress. HEAD: Normocephalic. EYES: Normal reaction of pupils, equal size. NOSE: Clear with pink turbinates. THROAT: No erythema or exudates. NECK: No masses, no JVD. CHEST: No chest wall deformity. LUNGS: Equal air entry with crackles in the bilateral posterior bases. CVS: S1 and S2 normal with no audible murmur, regular rhythm. ABDOMEN: No hepatosplenomegaly, normal bowel sounds, no guarding or rigidity. SPINE: No scoliosis or deformity SKIN: No rashes CENTRAL NERVOUS SYSTEM: No focal deficits, tone is normal in all 4 extremities. EXTREMITIES: There is no peripheral edema. No clubbing, no cyanosis. Peripheral pulses are intact. - Labs CBC & Chem 7: 11/06/20 06:55 11/06/20 06:55 Labs: Abnormal Lab Results - Last 24 Hours (Table) 11/06/20 Range/Units 06:55 Chloride 111 H (96-109) mmol/L Carbon Dioxide 21.0 L (21.6-31.8) mmol/L BUN/Creatinine Ratio 25.71 H (12.00-20.00) Ratio Glucose 121 H (70-110) mg/dL Calcium 8.2 L (8.7-10.3) mg/dL AST 85 H (14-35) U/L ALT 144 H (10-49) U/L Lactate Dehydrogenase 481 H (120-246) U/L C-Reactive Protein 7.8 H (0.0-0.8) mg/dL Total Protein 5.6 L (6.2-8.2) g/dL Albumin 3.50 L (3.80-4.90) g/dL Lipase 162 H (14-60) U/L Assessment and Plan Assessment: 1 Acute hypoxemic respiratory failure secondary to acute COVID-19 pneumonia. Outside the window for Remdesivir 2 Elevated inflammatory markers secondary to above 3 Mild transaminitis secondary to above 4 History of sarcoidosis, inactive and stable 5 Hypertension 6 Hypothyroidism 7 Hyperlipidemia Plan: The patient was seen and evaluated by Dr. Rodriguez Continue Lovenox, Decadron, vitamin supplements Follow-up chest x-ray, inflammatory markers in a.m. Titrate the FiO2 as tolerated We'll continue to follow and make further recommendations based on his clinical status I, the cosigning physician, performed a history & physical examination of the patient. Lungs sounds with crackles in the bilateral posterior bases. Maintaining good O2 saturations in the 90s on 10 L high flow nasal cannula. I discussed the assessment and plan of care with my nurse practitioner, Lizzie Rodriguez. I attest to the above note as dictated by her.
[2020-11-08] MEDS: IBUPROFEN 400 MG TAB PO PRN (05:23)
[2020-11-08] MEDS: LEVOTHYROXINE 100 MCG TAB PO SCH (05:23)
--- NOTE | 2020-11-08 07:15 | XR ---
EXAMINATION TYPE: XR chest 1V portable DATE OF EXAM: 11/08/2020 COMPARISON: 11/04/2020 HISTORY: Covid pneumonia TECHNIQUE: Single frontal view of the chest is obtained. FINDINGS: There are diffuse interstitial and partially consolidative opacities unchanged compared to the prior study. There is no pneumothorax. There is no significant pleural effusion. The heart and m ediastinum are normal. The osseous structures are intact. IMPRESSION: No change in the acute cardiopulmonary disease with diffuse bilateral infiltrates
[2020-11-08] MEDS: BENZONATATE 100 MG CAP PO SCH ×3 (10:07→21:47)
[2020-11-08] MEDS: FENOFIBRATE 160 MG TAB PO SCH (10:07)
[2020-11-08] MEDS: CHOLECALCIFEROL 25 MCG (1000 IU) TABLET PO SCH (10:07)
[2020-11-08] MEDS: dexAMETHasone 2 MG TAB PO SCH (10:07)
[2020-11-08] MEDS: ASCORBIC ACID 500 MG TAB PO SCH ×2 (10:07→21:47)
[2020-11-08] MEDS: ZINC SULFATE 220 MG CAP PO SCH (10:07)
[2020-11-08] MEDS: hydroCHLOROthiazide 25 MG TAB PO SCH (10:08)
[2020-11-08] MEDS: FAMOTIDINE 20 MG TAB PO SCH ×2 (10:08→21:47)
[2020-11-08] MEDS: LOSARTAN 50 MG TAB PO SCH (10:08)
[2020-11-08] MEDS: ENOXAPARIN 40 MG/0.4 ML SYRINGE SQ SCH (10:08)
--- NOTE | 2020-11-08 12:49 | P.PN ---
Subjective Progress Note Date: 11/07/20 Principal diagnosis: COVID-19 pneumonia 45-year-old gentleman who follows with Dr. Foote as his primary care provider. He has a history of hyperlipidemia, hypertension, hypothyroidism, sarcoidosis previously treated by Dr. Rodriguez in 2009 with no pulmonary symptoms since then. On October 25 patient developed a headache, loss of smell, worsening shortness of breath. He was tested positive for COVID-19 on 10/27/2020. His shortness of breath has progressed and gotten worse and he presented here to the emergency room yesterday. Chest x-ray reveals bilateral extensive pneumonia. CT angiogram ruled out pulmonary embolism. There is moderate scattered patchy groundglass opacities and interstitial infiltrates consistent with COVID-19 pneumonia. Suspect reactive bilateral hilar and mediastinal lymphadenopathy measuring up to 2.3 cm. He is seen today in consultation in the emergency room. He is currently sitting up on the stretcher. Awake and alert. In mild respiratory distress. Requiring 6 L high flow nasal cannula to maintain O2 saturation in the low 90s. T-max of 102.4. White count 6.1. Hemoglobin 13.9. Lymphocytes 0.5. D-dimer 0.76. Sodium 136. Potassium 3.9. Creatinine 0.70. Glucose 103. AST 115. ALT 129. LDH 1435. C-reactive protein 18.7. Troponin negative 1. He has been initiated on dexamethasone, Lovenox, vitamin supplements. 0.9 normal saline at 100 ML's per hour. Objective - Vital Signs Vital signs: Vital Signs Temp 97.9 F 11/07/20 09:51 Pulse 75 11/07/20 09:51 Resp 18 11/07/20 09:51 BP 153/89 11/07/20 09:51 Pulse Ox 92 L 11/07/20 09:51 Intake & Output 11/06/20 11/07/20 11/07/20 18:59 06:59 18:59 Output Total 500 Balance -500 Output: Urine 500 Other: Voiding Method Toilet Toilet Toilet # Voids 4 - Exam GENERAL: The patient is alert and oriented x3, not in any acute distress. Obese HEENT: Pupils are round and equally reacting to light. EOMI. No scleral icterus. No conjunctival pallor. Normocephalic, atraumatic. No pharyngeal erythema. No thyromegaly. CARDIOVASCULAR: S1 and S2 present. No murmurs, rubs, or gallops. PULMONARY: Chest is clear to auscultation, no wheezing or crackles. ABDOMEN: Soft, nontender, nondistended, normoactive bowel sounds. No palpable organomegaly. MUSCULOSKELETAL: No joint swelling or deformity. EXTREMITIES: No cyanosis, clubbing, or pedal edema. NEUROLOGICAL: Gross neurological examination did not reveal any focal deficits. SKIN: No rashes. - Labs CBC & Chem 7: 11/06/20 06:55 11/06/20 06:55 Labs: Abnormal Lab Results - Last 24 Hours (Table) 11/06/20 Range/Units 06:55 Chloride 111 H (96-109) mmol/L Carbon Dioxide 21.0 L (21.6-31.8) mmol/L BUN/Creatinine Ratio 25.71 H (12.00-20.00) Ratio Glucose 121 H (70-110) mg/dL Calcium 8.2 L (8.7-10.3) mg/dL AST 85 H (14-35) U/L ALT 144 H (10-49) U/L Lactate Dehydrogenase 481 H (120-246) U/L C-Reactive Protein 7.8 H (0.0-0.8) mg/dL Total Protein 5.6 L (6.2-8.2) g/dL Albumin 3.50 L (3.80-4.90) g/dL Lipase 162 H (14-60) U/L Assessment and Plan Assessment: -Acute hypoxic respiratory failure secondary to COVID-19 pneumonia: Patient is outside of the window for from this event and patient is presently on Decadron, vitamins. Presently anion liters of toxin worsened compared to yesterday. -Elevated liver enzymes her transaminitis secondary to COVID-19, repeat CMP tomorrow -Hypertension -Hypothyroidism -Hyperlipidemia -History of sarcoidosis. -Due to prophylaxis with history of prophylaxis with Protonix
[2020-11-08] MEDS: SODIUM CHLORIDE 0.9% 1,000 ML IV SCH (13:55)
--- NOTE | 2020-11-08 14:00 | P.PN ---
Subjective Progress Note Date: 11/08/20 Principal diagnosis: COVID-19 pneumonia This is a very pleasant 45-year-old gentleman who follows with Dr. Foote as his primary care provider. He has a history of hyperlipidemia, hypertension, hypothyroidism, sarcoidosis previously treated by Dr. Rodriguez in 2009 with no pulmonary symptoms since then. On October 25 patient developed a headache, loss of smell, worsening shortness of breath. He was tested positive for COVID-19 on 10/27/2020. His shortness of breath has progressed and gotten worse and he presented here to the emergency room yesterday. Chest x-ray reveals bilateral extensive pneumonia. CT angiogram ruled out pulmonary embolism. There is moderate scattered patchy groundglass opacities and interstitial infiltrates consistent with COVID-19 pneumonia. Suspect reactive bilateral hilar and mediastinal lymphadenopathy measuring up to 2.3 cm. He is seen today in consultation in the emergency room. He is currently sitting up on the stretcher. Awake and alert. In mild respiratory distress. Requiring 6 L high flow nasal cannula to maintain O2 saturation in the low 90s. T-max of 102.4. White count 6.1. Hemoglobin 13.9. Lymphocytes 0.5. D-dimer 0.76. Sodium 136. Potassium 3.9. Creatinine 0.70. Glucose 103. AST 115. ALT 129. LDH 1435. C-reactive protein 18.7. Troponin negative 1. He has been initiated on dexamethasone, Lovenox, vitamin supplements. 0.9 normal saline at 100 ML's per hour. Progress note dated 11/06/2020. 45-year-old male seen yesterday in consultation. The patient has a history of hyperlipidemia, hypertension, hypothyroidism, and inactive sarcoidosis. The patient was seen in the emergency department yesterday. He came with increasing shortness of breath. He tested positive for coronavirus on 10/27/2000. CT angiogram ruled out pulmonary embolism. It did show extensive bilateral infiltrates. Chest x-ray was also abnormal. Currently laboratory data includes a white count of 14.56, hemoglobin 12, hematocrit 36.6, and platelet count 393,000. D-dimer was 1.18. The patient is outside the window for REM, and was started on dexamethasone, Lovenox, vitamin C, vitamin D3, and zinc. Currently, he's on 9 L high flow nasal O2. His saturations are in the low 90s. The patient is seen today 11/07/2020 in follow-up on the regular medical floor. He is currently sitting up in bed. Awake and alert in no acute distress. He is feeling somewhat weak and tired still. Dyspneic with minimal exertion. M aintaining O2 saturations in the 90s on 10 L high flow nasal cannula. No new labs today. He is continued on vitamin supplements, dexamethasone, Lovenox. The patient is seen today 11/08/2020 in follow-up on the regular medical floor. He is currently sitting up in bed. Awake and alert in no acute distress. States he is breathing a bit easier today compared to yesterday. Still requiring 12 L high flow nasal cannula to maintain O2 saturations 88-90%. He's been afebrile. Hemodynamically stable. Today's chest x-ray reveals continued diffuse bilateral opacities. D-dimer 25.0. LDH 534. C-reactive protein 5.0. Remains on Lovenox, dexamethasone, vitamin supplements. Working well with the incentive spirometer. Repositioning himself frequently in bed. Objective - Vital Signs Vital signs: Vital Signs Temp 97.8 F 11/08/20 09:57 Pulse 79 11/08/20 09:57 Resp 22 11/08/20 09:57 BP 156/92 11/08/20 09:57 Pulse Ox 90 L 11/08/20 09:57 Intake & Output 11/07/20 11/08/20 11/08/20 18:59 06:59 18:59 Intake Total 360 Output Total 750 Balance -390 Intake: Intake, IV Titration 360 Amount Sodium Chloride 0.9% 1, 360 000 ml @ 10 mls/hr IV . Q24H [facility] Rx#:[id number] Output: Urine 750 Other: Voiding Method Toilet # Voids 2 - Exam GENERAL EXAM: Alert, very pleasant 45-year-old gentleman, on 12 L nasal cannula, comfortable in no apparent distress. HEAD: Normocephalic. EYES: Normal reaction of pupils, equal size. NOSE: Clear with pink turbinates. THROAT: No erythema or exudates. NECK: No masses, no JVD. CHEST: No chest wall deformity. LUNGS: Equal air entry with crackles in the bilateral posterior bases. CVS: S1 and S2 normal with no audible murmur, regular rhythm. ABDOMEN: No hepatosplenomegaly, normal bowel sounds, no guarding or rigidity. SPINE: No scoliosis or deformity SKIN: No rashes CENTRAL NERVOUS SYSTEM: No focal deficits, tone is normal in all 4 extremities. EXTREMITIES: There is no peripheral edema. No clubbing, no cyanosis. Peripheral pulses are intact. - Labs CBC & Chem 7: 11/06/20 06:55 11/06/20 06:55 Labs: Abnormal Lab Results - Last 24 Hours (Table) 11/08/20 11/08/20 Range/Units 06:40 07:38 D-Dimer 25.03 H (<0.60) mg/L FEU Lactate Dehydrogenase 534 H (120-246) U/L C-Reactive Protein 5.0 H (0.0-0.8) mg/dL Assessment and Plan Assessment: 1 Acute hypoxemic respiratory failure secondary to acute COVID-19 pneumonia. Outside the window for Remdesivir 2 Elevated inflammatory markers secondary to above 3 Mild transaminitis secondary to above 4 History of sarcoidosis, inactive and stable 5 Hypertension 6 Hypothyroidism 7 Hyperlipidemia Plan: The patient was seen and evaluated by Dr. Rodriguez Increase Lovenox to 50 mg subcu twice a day Up to 12 L high flow nasal cannula today We will order Tocilizumab Continue dexamethasone, vitamins Titrate the FiO2 as tolerated We'll continue to follow and make further recommendations based on his clinical status I, the cosigning physician, performed a history & physical examination of the patient. Lungs sounds with crackles in the bilateral posterior bases. Maintaining good O2 saturations in the 90s on 12 L high flow nasal cannula. I discussed the assessment and plan of care with my nurse practitioner, Lizzie Rodriguez. I attest to the above note as dictated by her.
[2020-11-08] MEDS ORDERED: SODIUM CHLORIDE 0.65% NASAL SPRAY 44 ML BTL NASAL PRN (14:06)
[2020-11-08] MEDS ORDERED: TOCILIZUMAB 800 MG in SODIUM CHLORIDE 0.9% 60 ML IV ONE (16:00)
[2020-11-08] MEDS: DEXAMETHASONE SOD PHOSPHATE 10 MG/ML 1 ML VIAL IV SCH (21:47)
[2020-11-08] MEDS: ENOXAPARIN 60 MG/0.6 ML SYRINGE SQ SCH (21:48)
[2020-11-09] MEDS: LEVOTHYROXINE 100 MCG TAB PO SCH (06:01)
[2020-11-09] MEDS: IBUPROFEN 400 MG TAB PO PRN (06:05)
[2020-11-09] MEDS: CHOLECALCIFEROL 25 MCG (1000 IU) TABLET PO SCH (08:55)
[2020-11-09] MEDS: DEXAMETHASONE SOD PHOSPHATE 10 MG/ML 1 ML VIAL IV SCH ×2 (08:56→20:12)
[2020-11-09] MEDS: hydroCHLOROthiazide 25 MG TAB PO SCH (08:56)
[2020-11-09] MEDS: ENOXAPARIN 60 MG/0.6 ML SYRINGE SQ SCH ×2 (08:56→20:13)
[2020-11-09] MEDS: ZINC SULFATE 220 MG CAP PO SCH (08:56)
[2020-11-09] MEDS: FAMOTIDINE 20 MG TAB PO SCH ×2 (08:56→20:12)
[2020-11-09] MEDS: BENZONATATE 100 MG CAP PO SCH ×3 (08:56→20:12)
[2020-11-09] MEDS: LOSARTAN 50 MG TAB PO SCH (08:56)
[2020-11-09] MEDS: ASCORBIC ACID 500 MG TAB PO SCH ×2 (08:56→20:12)
[2020-11-09] MEDS: FENOFIBRATE 160 MG TAB PO SCH (08:56)
--- NOTE | 2020-11-09 11:01 | P.PN ---
Subjective Progress Note Date: 11/08/20 Principal diagnosis: COVID-19 pneumonia 45-year-old gentleman who follows with Dr. Foote as his primary care provider. He has a history of hyperlipidemia, hypertension, hypothyroidism, sarcoidosis previously treated by Dr. Rodriguez in 2009 with no pulmonary symptoms since then. On October 25 patient developed a headache, loss of smell, worsening shortness of breath. He was tested positive for COVID-19 on 10/27/2020. His shortness of breath has progressed and gotten worse and he presented here to the emergency room yesterday. Chest x-ray reveals bilateral extensive pneumonia. CT angiogram ruled out pulmonary embolism. There is moderate scattered patchy groundglass opacities and interstitial infiltrates consistent with COVID-19 pneumonia. Suspect reactive bilateral hilar and mediastinal lymphadenopathy measuring up to 2.3 cm. He is seen today in consultation in the emergency room. He is currently sitting up on the stretcher. Awake and alert. In mild respiratory distress. Requiring 6 L high flow nasal cannula to maintain O2 saturation in the low 90s. T-max of 102.4. White count 6.1. Hemoglobin 13.9. Lymphocytes 0.5. D-dimer 0.76. Sodium 136. Potassium 3.9. Creatinine 0.70. Glucose 103. AST 115. ALT 129. LDH 1435. C-reactive protein 18.7. Troponin negative 1. He has been initiated on dexamethasone, Lovenox, vitamin supplements. 0.9 normal saline at 100 ML's per hour. 11/08/2020 Patient is seen and evaluated in follow-up on the regular medical floor. He is currently sitting up in bed. Awake and alert in no acute distress. States he is breathing a bit easier today compared to yesterday. Patient continues to require 12 L high flow nasal cannula to maintain O2 saturations 88-90%. He's been afebrile. Hemodynamically stable. Today's chest x-ray reveals continued diffuse bilateral opacities. D-dimer 25.0. LDH 534. C-reactive protein 5.0. Remains on Lovenox, dexamethasone, vitamin supplements. Outside the window for Remdesivir; Titrate the FiO2 as tolerated Working well with the incentive spirometer. Repositioning himself frequently in bed. Objective - Vital Signs Vital signs: Vital Signs Temp 97.8 F 11/08/20 09:57 Pulse 79 11/08/20 09:57 Resp 22 11/08/20 09:57 BP 156/92 11/08/20 09:57 Pulse Ox 90 L 11/08/20 09:57 Intake & Output 11/07/20 11/08/20 11/08/20 18:59 06:59 18:59 Intake Total 360 Output Total 750 Balance -390 Intake: Intake, IV Titration 360 Amount Sodium Chloride 0.9% 1, 360 000 ml @ 10 mls/hr IV . Q24H [facility] Rx#:[id number] Output: Urine 750 Other: Voiding Method Toilet # Voids 2 - Exam GENERAL: The patient is alert and oriented x3, not in any acute distress. Obese HEENT: Pupils are round and equally reacting to light. EOMI. No scleral icterus. No conjunctival pallor. Normocephalic, atraumatic. No pharyngeal erythema. No thyromegaly. CARDIOVASCULAR: S1 and S2 present. No murmurs, rubs, or gallops. PULMONARY: Chest is clear to auscultation, no wheezing or crackles. ABDOMEN: Soft, nontender, nondistended, normoactive bowel sounds. No palpable organomegaly. MUSCULOSKELETAL: No joint swelling or deformity. EXTREMITIES: No cyanosis, clubbing, or pedal edema. NEUROLOGICAL: Gross neurological examination did not reveal any focal deficits. SKIN: No rashes. - Labs CBC & Chem 7: 11/06/20 06:55 11/06/20 06:55 Labs: Abnormal Lab Results - Last 24 Hours (Table) 11/08/20 Range/Units 07:38 D-Dimer 25.03 H (<0.60) mg/L FEU Assessment and Plan Assessment: -Acute hypoxic respiratory failure secondary to COVID-19 pneumonia: Patient is outside of the window for from this event and patient is presently on Decadron, vitamins. Presently anion liters of toxin worsened compared to yesterday. -Elevated liver enzymes her transaminitis secondary to COVID-19, repeat CMP tomorrow -Hypertension -Hypothyroidism -Hyperlipidemia -History of sarcoidosis. -Due to prophylaxis with history of prophylaxis with Protonix
--- NOTE | 2020-11-09 15:20 | P.PN ---
Subjective Progress Note Date: 11/09/20 Principal diagnosis: COVID-19 pneumonia This is a very pleasant 45-year-old gentleman who follows with Dr. Foote as his primary care provider. He has a history of hyperlipidemia, hypertension, hypothyroidism, sarcoidosis previously treated by Dr. Rodriguez in 2009 with no pulmonary symptoms since then. On October 25 patient developed a headache, loss of smell, worsening shortness of breath. He was tested positive for COVID-19 on 10/27/2020. His shortness of breath has progressed and gotten worse and he presented here to the emergency room yesterday. Chest x-ray reveals bilateral extensive pneumonia. CT angiogram ruled out pulmonary embolism. There is moderate scattered patchy groundglass opacities and interstitial infiltrates consistent with COVID-19 pneumonia. Suspect reactive bilateral hilar and mediastinal lymphadenopathy measuring up to 2.3 cm. He is seen today in consultation in the emergency room. He is currently sitting up on the stretcher. Awake and alert. In mild respiratory distress. Requiring 6 L high flow nasal cannula to maintain O2 saturation in the low 90s. T-max of 102.4. White count 6.1. Hemoglobin 13.9. Lymphocytes 0.5. D-dimer 0.76. Sodium 136. Potassium 3.9. Creatinine 0.70. Glucose 103. AST 115. ALT 129. LDH 1435. C-reactive protein 18.7. Troponin negative 1. He has been initiated on dexamethasone, Lovenox, vitamin supplements. 0.9 normal saline at 100 ML's per hour. Progress note dated 11/06/2020. 45-year-old male seen yesterday in consultation. The patient has a history of hyperlipidemia, hypertension, hypothyroidism, and inactive sarcoidosis. The patient was seen in the emergency department yesterday. He came with increasing shortness of breath. He tested positive for coronavirus on 10/27/2000. CT angiogram ruled out pulmonary embolism. It did show extensive bilateral infiltrates. Chest x-ray was also abnormal. Currently laboratory data includes a white count of 14.56, hemoglobin 12, hematocrit 36.6, and platelet count 393,000. D-dimer was 1.18. The patient is outside the window for REM, and was started on dexamethasone, Lovenox, vitamin C, vitamin D3, and zinc. Currently, he's on 9 L high flow nasal O2. His saturations are in the low 90s. The patient is seen today 11/07/2020 in follow-up on the regular medical floor. He is currently sitting up in bed. Awake and alert in no acute distress. He is feeling somewhat weak and tired still. Dyspneic with minimal exertion. M aintaining O2 saturations in the 90s on 10 L high flow nasal cannula. No new labs today. He is continued on vitamin supplements, dexamethasone, Lovenox. The patient is seen today 11/08/2020 in follow-up on the regular medical floor. He is currently sitting up in bed. Awake and alert in no acute distress. States he is breathing a bit easier today compared to yesterday. Still requiring 12 L high flow nasal cannula to maintain O2 saturations 88-90%. He's been afebrile. Hemodynamically stable. Today's chest x-ray reveals continued diffuse bilateral opacities. D-dimer 25.0. LDH 534. C-reactive protein 5.0. Remains on Lovenox, dexamethasone, vitamin supplements. Working well with the incentive spirometer. Repositioning himself frequently in bed. On 11/09/2020 patient seen in follow-up on medical surgical floor. Is currently on 11 L of oxygen, and his pulse ox between 89-90%, he states his breathing is improving, no cough, no chest discomfort, he is afebrile, hemodynamically stable, he is status post Toci yesterday on 11/08/2020, he continues on Decadron 6 mgram twice daily, and his Lovenox dose was adjusted yesterday in view of increased d-dimer, CTA chest on 11/05/2020 showed no evidence of pulmonary embolism. Lower extremity Dopplers are pending at this time Objective - Vital Signs Vital signs: Vital Signs Temp 98.1 F 11/09/20 14:00 Pulse 84 11/09/20 14:00 Resp 20 11/09/20 14:00 BP 138/87 11/09/20 14:00 Pulse Ox 89 L 11/09/20 14:00 Intake & Output 11/08/20 11/09/20 11/09/20 18:59 06:59 18:59 Intake Total 600 400 Output Total 1000 Balance -400 400 Intake: Oral 600 400 Output: Urine 1000 Other: Voiding Method Toilet # Voids 3 4 # Bowel Movements 1 1 - Exam GENERAL EXAM: Alert, very pleasant, 45-year-old white male on 11 L of oxygen and the pulse ox of 89-90% comfortable in no apparent distress. HEAD: Normocephalic/atraumatic. EYES: Normal reaction of pupils, equal size. Conjunctiva pink, sclera white. NOSE: Clear with pink turbinates. THROAT: No erythema or exudates. NECK: No masses, no JVD, no thyroid enlargement, no adenopathy. CHEST: No chest wall deformity. Symmetrical expansion. LUNGS: Equal air entry with bibasilar crackles CVS: Regular rate and rhythm, normal S1 and S2, no gallops, no murmurs, no rubs ABDOMEN: Soft, nontender. No hepatosplenomegaly, normal bowel sounds, no guarding or rigidity. EXTREMITIES: No clubbing, no edema, no cyanosis, 2+ pulses and upper and lower extremities. MUSCULOSKELETAL: Muscle strength and tone normal. SPINE: No scoliosis or deformity SKIN: No rashes CENTRAL NERVOUS SYSTEM: Alert and oriented -3. No focal deficits, tone is normal in all 4 extremities. PSYCHIATRIC: Alert and oriented -3. Appropriate affect. Intact judgment and insight. - Labs CBC & Chem 7: 11/06/20 06:55 11/06/20 06:55 Assessment and Plan Plan: Assessment: #1. Acute hypoxic respiratory failure secondary to acute COVID-19 pneumonia, patient was outside the window for Remdesivir, patient developed worsening hypoxia and on 11/08/2020 received a dose of Tocilizumab #2. Elevated some inflammatory markers related to the above, improving #3. Elevated d-dimer, peaked at 25.03, no CTA evidence of pulmonary embolism, rule out possibility of lower extremity DVT #4. Elevated transaminases related to viral pneumonia #5. History of sarcoidosis, inactive in stable #6. Hypertension #7. Hypothyroidism #8. Hyperlipidemia Plan: Continue current dose Decadron Continue Lovenox Follow-up d-dimer tomorrow Lower extremity Dopplers to exclude possibility of DVT Titrate FiO2 We'll continue to follow I performed a history & physical examination of the patient and discussed their management with my nurse practitioner, Lili Shaikh. I reviewed the nurse practitioner's note and agree with the documented findings and plan of care. Lung sounds are positive for bibasilar rales. The findings and the impression was discussed with the patient. I attest to the documentation by the nurse practitioner. Time with Patient: Less than 30
--- NOTE | 2020-11-09 16:48 | US ---
EXAMINATION TYPE: US venous doppler duplex LE BI DATE OF EXAM: 11/09/2020 3:24 PM COMPARISON: NONE CLINICAL HISTORY: rule out DVT. Covid SIDE PERFORMED: Bilateral TECHNIQUE: The lower extremity deep venous system is examined utilizing real time linear array sonog bre with graded compression, doppler sonography and color-flow sonography. VESSELS IMAGED: Common Femoral Vein Deep Femoral Vein Greater Saphenous Vein * Femoral Vein Popliteal Vein Small Saphenous Vein * Proximal Calf Veins (* superficial vessels) Right Leg: Negative for DVT Left Leg: Negative for DVT IMPRESSION: No evidence of deep vein thrombosis in both legs.
[2020-11-10] MEDS: IBUPROFEN 400 MG TAB PO PRN ×2 (02:07→21:25)
--- NOTE | 2020-11-10 02:48 | P.PN ---
Subjective Progress Note Date: 11/09/20 Principal diagnosis: COVID-19 pneumonia 45-year-old gentleman who follows with Dr. Foote as his primary care provider. He has a history of hyperlipidemia, hypertension, hypothyroidism, sarcoidosis previously treated by Dr. Rodriguez in 2009 with no pulmonary symptoms since then. On October 25 patient developed a headache, loss of smell, worsening shortness of breath. He was tested positive for COVID-19 on 10/27/2020. His shortness of breath has progressed and gotten worse and he presented here to the emergency room yesterday. Chest x-ray reveals bilateral extensive pneumonia. CT angiogram ruled out pulmonary embolism. There is moderate scattered patchy groundglass opacities and interstitial infiltrates consistent with COVID-19 pneumonia. Suspect reactive bilateral hilar and mediastinal lymphadenopathy measuring up to 2.3 cm. He is seen today in consultation in the emergency room. He is currently sitting up on the stretcher. Awake and alert. In mild respiratory distress. Requiring 6 L high flow nasal cannula to maintain O2 saturation in the low 90s. T-max of 102.4. White count 6.1. Hemoglobin 13.9. Lymphocytes 0.5. D-dimer 0.76. Sodium 136. Potassium 3.9. Creatinine 0.70. Glucose 103. AST 115. ALT 129. LDH 1435. C-reactive protein 18.7. Troponin negative 1. He has been initiated on dexamethasone, Lovenox, vitamin supplements. 0.9 normal saline at 100 ML's per hour. 11/08/2020 Patient is seen and evaluated in follow-up on the regular medical floor. He is currently sitting up in bed. Awake and alert in no acute distress. States he is breathing a bit easier today compared to yesterday. Patient continues to require 12 L high flow nasal cannula to maintain O2 saturations 88-90%. He's been afebrile. Hemodynamically stable. Today's chest x-ray reveals continued diffuse bilateral opacities. D-dimer 25.0. LDH 534. C-reactive protein 5.0. Remains on Lovenox, dexamethasone, vitamin supplements. Outside the window for Remdesivir; Titrate the FiO2 as tolerated Working well with the incentive spirometer. Repositioning himself frequently in bed. 11/09/2020 patient is seen and evaluated in follow-up on medical surgical floor; on 11 L of oxygen, and his pulse ox between 89-90%, he states his breathing is improving, no cough, no chest discomfort, he is afebrile, hemodynamically stable Patient is status post Toci yesterday on 11/08/2020; remains on Decadron 6 mgram twice daily; Lovenox dose was adjusted yesterday in view of increased d-dimer, CTA chest on 11/05/2020 showed no evidence of pulmonary embolism. Lower extremity Dopplers are pending at this time Follow-up d-dimer tomorrow; Lower extremity Dopplers- DVT has been ruled out; Titrate FiO2 as able Objective - Vital Signs Vital signs: Vital Signs Temp 98.0 F 11/09/20 10:03 Pulse 73 11/09/20 10:03 Resp 20 11/09/20 10:03 BP 136/86 11/09/20 10:03 Pulse Ox 89 L 11/09/20 10:03 Intake & Output 11/08/20 11/09/20 11/09/20 18:59 06:59 18:59 Intake Total 600 400 Output Total 1000 Balance -400 400 Intake: Oral 600 400 Output: Urine 1000 Other: Voiding Method Toilet # Voids 3 4 # Bowel Movements 1 1 - Exam GENERAL: The patient is alert and oriented x3, not in any acute distress. Obese HEENT: Pupils are round and equally reacting to light. EOMI. No scleral icterus. No conjunctival pallor. Normocephalic, atraumatic. No pharyngeal erythema. No thyromegaly. CARDIOVASCULAR: S1 and S2 present. No murmurs, rubs, or gallops. PULMONARY: Chest is clear to auscultation, no wheezing or crackles. ABDOMEN: Soft, nontender, nondistended, normoactive bowel sounds. No palpable organomegaly. MUSCULOSKELETAL: No joint swelling or deformity. EXTREMITIES: No cyanosis, clubbing, or pedal edema. NEUROLOGICAL: Gross neurological examination did not reveal any focal deficits. SKIN: No rashes. - Labs CBC & Chem 7: 11/06/20 06:55 11/06/20 06:55 Labs: Abnormal Lab Results - Last 24 Hours (Table) 11/08/20 Range/Units 06:40 Lactate Dehydrogenase 534 H (120-246) U/L C-Reactive Protein 5.0 H (0.0-0.8) mg/dL Assessment and Plan Assessment: -Acute hypoxic respiratory failure secondary to COVID-19 pneumonia: Patient is outside of the window for from this event and patient is presently on Decadron, vitamins. Presently anion liters of toxin worsened compared to yesterday. -Elevated liver enzymes her transaminitis secondary to COVID-19, repeat CMP tomorrow -Hypertension -Hypothyroidism -Hyperlipidemia -History of sarcoidosis. -Due to prophylaxis with history of prophylaxis with Protonix
[2020-11-10] MEDS: LEVOTHYROXINE 100 MCG TAB PO SCH (05:30)
[2020-11-10] MEDS: ENOXAPARIN 60 MG/0.6 ML SYRINGE SQ SCH ×2 (08:18→21:27)
[2020-11-10] MEDS: FAMOTIDINE 20 MG TAB PO SCH ×2 (08:19→21:25)
[2020-11-10] MEDS: ZINC SULFATE 220 MG CAP PO SCH (08:19)
[2020-11-10] MEDS: CHOLECALCIFEROL 25 MCG (1000 IU) TABLET PO SCH (08:19)
[2020-11-10] MEDS: BENZONATATE 100 MG CAP PO SCH ×3 (08:19→21:25)
[2020-11-10] MEDS: FENOFIBRATE 160 MG TAB PO SCH (08:19)
[2020-11-10] MEDS: ASCORBIC ACID 500 MG TAB PO SCH ×2 (08:19→21:25)
[2020-11-10] MEDS: DEXAMETHASONE SOD PHOSPHATE 10 MG/ML 1 ML VIAL IV SCH ×2 (08:19→21:25)
[2020-11-10] MEDS: hydroCHLOROthiazide 25 MG TAB PO SCH (08:19)
[2020-11-10] MEDS: LOSARTAN 50 MG TAB PO SCH (08:20)
--- NOTE | 2020-11-10 10:19 | P.PN ---
Subjective 45-year-old male admitted for Covid 19 pneumonia, out of window for Remdesivir. Patient respiratory status has worsened and the patient is presently on 9 L as opposed to 6 L of oxygen as today patient feels little bit better clinically. Still bit short of breath. 11/10/2020 Patient is presently on 10 L of oxygen and appears to have marginal improvement compared to yesterday. Patient had a CT angios the chest which did not show any pulmonary embolism. Patient continues to be on Decadron. Patient overall feeling better patient shortness of breath did improve and not feeling short of breath on oxygen. Constitutional: Denied any fatigue denied any fever. Cardio vascular: denied any chest pain, palpitations Gastrointestinal denied any nausea vomiting Pulmonary: As mentioned in the interval history Neurologic denied any new focal deficits All inpatient medications were reviewed and appropriate changes in these medications as dictated in the interval history and assessment and plan. Objective - Vital Signs Vital signs: Vital Signs Temp 98.6 F 11/10/20 09:37 Pulse 80 11/10/20 09:37 Resp 22 11/10/20 09:37 BP 158/89 11/10/20 09:37 Pulse Ox 89 L 11/10/20 09:37 Intake & Output 11/09/20 11/10/20 11/10/20 18:59 06:59 18:59 Intake Total 200 360 Output Total 700 625 Balance -700 -425 360 Intake: Oral 200 360 Output: Urine 700 625 Other: Voiding Method Toilet # Voids 2 - Exam PHYSICAL EXAMINATION: GENERAL: The patient is alert and oriented x3, not in any acute distress. Obese HEENT: Pupils are round and equally reacting to light. EOMI. No scleral icterus. No conjunctival pallor. Normocephalic, atraumatic. No pharyngeal erythema. No thyromegaly. CARDIOVASCULAR: S1 and S2 present. No murmurs, rubs, or gallops. PULMONARY: Chest is clear to auscultation, no wheezing or crackles. ABDOMEN: Soft, nontender, nondistended, normoactive bowel sounds. No palpable organomegaly. MUSCULOSKELETAL: No joint swelling or deformity. EXTREMITIES: No cyanosis, clubbing, or pedal edema. NEUROLOGICAL: Gross neurological examination did not reveal any focal deficits. SKIN: No rashes. - Labs CBC & Chem 7: 11/06/20 06:55 11/06/20 06:55 Labs: Abnormal Lab Results - Last 24 Hours (Table) 11/10/20 Range/Units 07:15 D-Dimer 18.81 H (<0.60) mg/L FEU Assessment and Plan Plan: -Acute hypoxic respiratory failure secondary to COVID-19 pneumonia: Patient is outside of the window for from this event and patient is presently on Decadron, vitamins. Patient is presently on 10 L of oxygen, some clinical improvement competitors. Ruled out pulmonary embolism to CT angios the chest. Lower extremity Dopplers are negative for DVT. Because of highly elevated d-dimer patient is on Lovenox 50 twice a day -Elevated liver enzymes her transaminitis secondary to COVID-19, repeat CMP tomorrow -Hypertension -Hypothyroidism -Hyperlipidemia -History of sarcoidosis. -Due to prophylaxis with history of prophylaxis with Protonix
[2020-11-10 12:34] LABS: African American GFR (CKD) 130.2 (60.0-200.0); Anion Gap 8.4 mmol/L (4.00-12.00); BUN/Creat Ratio 32.86 Ratio (12.00-20.00); Calcium 8.4 mg/dL (8.7-10.3); Carbon Dioxide 26.6 mmol/L (21.6-31.8); Non-African American GFR(CKD) 112.4 (60.0-200.0)
--- NOTE | 2020-11-10 14:02 | P.PN ---
Subjective Progress Note Date: 11/10/20 Principal diagnosis: COVID-19 pneumonia This is a very pleasant 45-year-old gentleman who follows with Dr. Foote as his primary care provider. He has a history of hyperlipidemia, hypertension, hypothyroidism, sarcoidosis previously treated by Dr. Rodriguez in 2009 with no pulmonary symptoms since then. On October 25 patient developed a headache, loss of smell, worsening shortness of breath. He was tested positive for COVID-19 on 10/27/2020. His shortness of breath has progressed and gotten worse and he presented here to the emergency room yesterday. Chest x-ray reveals bilateral extensive pneumonia. CT angiogram ruled out pulmonary embolism. There is moderate scattered patchy groundglass opacities and interstitial infiltrates consistent with COVID-19 pneumonia. Suspect reactive bilateral hilar and mediastinal lymphadenopathy measuring up to 2.3 cm. He is seen today in consultation in the emergency room. He is currently sitting up on the stretcher. Awake and alert. In mild respiratory distress. Requiring 6 L high flow nasal cannula to maintain O2 saturation in the low 90s. T-max of 102.4. White count 6.1. Hemoglobin 13.9. Lymphocytes 0.5. D-dimer 0.76. Sodium 136. Potassium 3.9. Creatinine 0.70. Glucose 103. AST 115. ALT 129. LDH 1435. C-reactive protein 18.7. Troponin negative 1. He has been initiated on dexamethasone, Lovenox, vitamin supplements. 0.9 normal saline at 100 ML's per hour. Progress note dated 11/06/2020. 45-year-old male seen yesterday in consultation. The patient has a history of hyperlipidemia, hypertension, hypothyroidism, and inactive sarcoidosis. The patient was seen in the emergency department yesterday. He came with increasing shortness of breath. He tested positive for coronavirus on 10/27/2000. CT angiogram ruled out pulmonary embolism. It did show extensive bilateral infiltrates. Chest x-ray was also abnormal. Currently laboratory data includes a white count of 14.56, hemoglobin 12, hematocrit 36.6, and platelet count 393,000. D-dimer was 1.18. The patient is outside the window for REM, and was started on dexamethasone, Lovenox, vitamin C, vitamin D3, and zinc. Currently, he's on 9 L high flow nasal O2. His saturations are in the low 90s. The patient is seen today 11/07/2020 in follow-up on the regular medical floor. He is currently sitting up in bed. Awake and alert in no acute distress. He is feeling somewhat weak and tired still. Dyspneic with minimal exertion. M aintaining O2 saturations in the 90s on 10 L high flow nasal cannula. No new labs today. He is continued on vitamin supplements, dexamethasone, Lovenox. The patient is seen today 11/08/2020 in follow-up on the regular medical floor. He is currently sitting up in bed. Awake and alert in no acute distress. States he is breathing a bit easier today compared to yesterday. Still requiring 12 L high flow nasal cannula to maintain O2 saturations 88-90%. He's been afebrile. Hemodynamically stable. Today's chest x-ray reveals continued diffuse bilateral opacities. D-dimer 25.0. LDH 534. C-reactive protein 5.0. Remains on Lovenox, dexamethasone, vitamin supplements. Working well with the incentive spirometer. Repositioning himself frequently in bed. On 11/09/2020 patient seen in follow-up on medical surgical floor. Is currently on 11 L of oxygen, and his pulse ox between 89-90%, he states his breathing is improving, no cough, no chest discomfort, he is afebrile, hemodynamically stable, he is status post Toci yesterday on 11/08/2020, he continues on Decadron 6 mgram twice daily, and his Lovenox dose was adjusted yesterday in view of increased d-dimer, CTA chest on 11/05/2020 showed no evidence of pulmonary embolism. Lower extremity Dopplers are pending at this time On 11/10/2020 patient seen in follow-up on medical surgical floor. He is currently on 11 L of oxygen his pulse ox is 89%, he is breathing comfortably, denies any worsening dyspnea or cough, he is resting comfortably in bed, he's had no fever or chills, vital signs have been stable, at rest his respirations are nonlabored, he does become short of breath with exertion. Today's labs have been reviewed, d-dimer is improving, but still elevated at 18.8, electrolytes and renal profile are within normal, LDH is improving. CRP level is pending, lower extremity Dopplers were completed showing no evidence of DVT. Patient is currently on Lovenox 50 mg subcu twice daily and he remains on Decadron 6 Mg Twi ce Daily. Objective - Vital Signs Vital signs: Vital Signs Temp 98.6 F 11/10/20 09:37 Pulse 80 11/10/20 09:37 Resp 22 11/10/20 09:37 BP 158/89 11/10/20 09:37 Pulse Ox 89 L 11/10/20 09:37 Intake & Output 11/09/20 11/10/20 11/10/20 18:59 06:59 18:59 Intake Total 200 360 Output Total 700 625 Balance -700 -425 360 Intake: Oral 200 360 Output: Urine 700 625 Other: Voiding Method Toilet # Voids 2 - Exam GENERAL EXAM: Alert, very pleasant, 45-year-old white male on 11 L of oxygen and the pulse ox of 89-90% comfortable in no apparent distress. HEAD: Normocephalic/atraumatic. EYES: Normal reaction of pupils, equal size. Conjunctiva pink, sclera white. NOSE: Clear with pink turbinates. THROAT: No erythema or exudates. NECK: No masses, no JVD, no thyroid enlargement, no adenopathy. CHEST: No chest wall deformity. Symmetrical expansion. LUNGS: Equal air entry with bibasilar crackles CVS: Regular rate and rhythm, normal S1 and S2, no gallops, no murmurs, no rubs ABDOMEN: Soft, nontender. No hepatosplenomegaly, normal bowel sounds, no guarding or rigidity. EXTREMITIES: No clubbing, no edema, no cyanosis, 2+ pulses and upper and lower extremities. MUSCULOSKELETAL: Muscle strength and tone normal. SPINE: No scoliosis or deformity SKIN: No rashes CENTRAL NERVOUS SYSTEM: Alert and oriented -3. No focal deficits, tone is normal in all 4 extremities. PSYCHIATRIC: Alert and oriented -3. Appropriate affect. Intact judgment and insight. - Labs CBC & Chem 7: 11/06/20 06:55 11/10/20 07:15 Labs: Abnormal Lab Results - Last 24 Hours (Table) 11/10/20 11/10/20 Range/Units 07:15 07:15 D-Dimer 18.81 H (<0.60) mg/L FEU BUN/Creatinine Ratio 32.86 H (12.00-20.00) Ratio Glucose 111 H (70-110) mg/dL Calcium 8.4 L (8.7-10.3) mg/dL Lactate Dehydrogenase 485 H (120-246) U/L Assessment and Plan Plan: Assessment: #1. Acute hypoxic respiratory failure secondary to acute COVID-19 pneumonia, patient was outside the window for Remdesivir, patient developed worsening hypoxia and on 11/08/2020 received a dose of Tocilizumab #2. Elevated some inflammatory markers related to the above, improving #3. Elevated d-dimer, peaked at 25.03, no CTA evidence of pulmonary embolism, rule out possibility of lower extremity DVT #4. Elevated transaminases related to viral pneumonia #5. History of sarcoidosis, inactive in stable #6. Hypertension #7. Hypothyroidism #8. Hyperlipidemia Plan: Patient appears to be breathing comfortably, Still requiring high flow oxygen, currently at 11 L No fever or chills, inflammatory markers are improving, d-dimer is improving Continue with current dose Lovenox Daily follow-up on the d-dimer Continue current doses of Decadron I performed a history & physical examination of the patient and discussed their management with my nurse practitioner, Lili Shaikh. I reviewed the nurse practitioner's note and agree with the documented findings and plan of care. Lung sounds are positive for bibasilar rales. The findings and the impression was discussed with the patient. I attest to the documentation by the nurse prac titioner. Time with Patient: Less than 30
[2020-11-11] MEDS: LEVOTHYROXINE 100 MCG TAB PO SCH (05:15)
--- NOTE | 2020-11-11 08:28 | P.PN ---
Subjective 45-year-old male admitted for Covid 19 pneumonia, out of window for Remdesivir. Patient respiratory status has worsened and the patient is presently on 9 L as opposed to 6 L of oxygen as today patient feels little bit better clinically. Still bit short of breath. 11/10/2020 Patient is presently on 10 L of oxygen and appears to have marginal improvement compared to yesterday. Patient had a CT angios the chest which did not show any pulmonary embolism. Patient continues to be on Decadron. Patient overall feeling better patient shortness of breath did improve and not feeling short of breath on oxygen. 11/11/2020 Patient is saturating well on level liters of oxygen. Patient d-dimer has come down significantly. Patient feels better. Patient is coughing up. Constitutional: Denied any fatigue denied any fever. Cardio vascular: denied any chest pain, palpitations Gastrointestinal denied any nausea vomiting Pulmonary: As mentioned in the interval history Neurologic denied any new focal deficits All inpatient medications were reviewed and appropriate changes in these medications as dictated in the interval history and assessment and plan. Objective - Vital Signs Vital signs: Vital Signs Temp 98.3 F 11/11/20 05:47 Pulse 70 11/11/20 05:47 Resp 20 11/11/20 02:57 BP 135/82 11/11/20 05:47 Pulse Ox 95 11/11/20 05:47 Intake & Output 11/10/20 11/11/20 11/11/20 18:59 06:59 18:59 Intake Total 360 960 Output Total 700 Balance 360 260 Intake: Oral 360 960 Output: Urine 700 Other: Voiding Method Toilet # Voids 5 3 # Bowel Movements 1 - Exam PHYSICAL EXAMINATION: GENERAL: The patient is alert and oriented x3, not in any acute distress. Obese HEENT: Pupils are round and equally reacting to light. EOMI. No scleral icterus. No conjunctival pallor. Normocephalic, atraumatic. No pharyngeal erythema. No thyromegaly. CARDIOVASCULAR: S1 and S2 present. No murmurs, rubs, or gallops. PULMONARY: Chest is clear to auscultation, no wheezing or crackles. ABDOMEN: Soft, nontender, nondistended, normoactive bowel sounds. No palpable organomegaly. MUSCULOSKELETAL: No joint swelling or deformity. EXTREMITIES: No cyanosis, clubbing, or pedal edema. NEUROLOGICAL: Gross neurological examination did not reveal any focal deficits. SKIN: No rashes. - Labs CBC & Chem 7: 11/06/20 06:55 11/10/20 07:15 Labs: Abnormal Lab Results - Last 24 Hours (Table) 11/10/20 11/11/20 Range/Units 07:15 06:25 D-Dimer 8.60 H (<0.60) mg/L FEU BUN/Creatinine Ratio 32.86 H (12.00-20.00) Ratio Glucose 111 H (70-110) mg/dL Calcium 8.4 L (8.7-10.3) mg/dL Lactate Dehydrogenase 485 H (120-246) U/L C-Reactive Protein 4.0 H (0.0-0.8) mg/dL Assessment and Plan Plan: -Acute hypoxic respiratory failure secondary to COVID-19 pneumonia: Patient is outside of the window for from this event and patient is presently on Decadron, vitamins. Patient is presently on 11 L of oxygen, patient is saturating well o n liver liters will cut down the oxygen. Ruled out pulmonary embolism to CT angios the chest. Lower extremity Dopplers are negative for DVT. Because of highly elevated d-dimer patient is on Lovenox 50 twice a day coming down -Elevated liver enzymes her transaminitis secondary to COVID-19, repeat CMP tomorrow -Hypertension -Hypothyroidism -Hyperlipidemia -History of sarcoidosis. -Due to prophylaxis with history of prophylaxis with Protonix
[2020-11-11] MEDS: DEXAMETHASONE SOD PHOSPHATE 10 MG/ML 1 ML VIAL IV SCH ×2 (09:56→20:27)
[2020-11-11] MEDS: LOSARTAN 50 MG TAB PO SCH (09:56)
[2020-11-11] MEDS: ASCORBIC ACID 500 MG TAB PO SCH ×2 (09:57→20:27)
[2020-11-11] MEDS: FENOFIBRATE 160 MG TAB PO SCH (09:57)
[2020-11-11] MEDS: hydroCHLOROthiazide 25 MG TAB PO SCH (09:57)
[2020-11-11] MEDS: BENZONATATE 100 MG CAP PO SCH ×3 (09:57→20:27)
[2020-11-11] MEDS: ENOXAPARIN 60 MG/0.6 ML SYRINGE SQ SCH ×2 (09:57→20:26)
[2020-11-11] MEDS: ZINC SULFATE 220 MG CAP PO SCH (09:57)
[2020-11-11] MEDS: FAMOTIDINE 20 MG TAB PO SCH ×2 (09:57→20:27)
[2020-11-11] MEDS: CHOLECALCIFEROL 25 MCG (1000 IU) TABLET PO SCH (09:57)
[2020-11-11 11:07] LABS: African American GFR (CKD) 138.8 (60.0-200.0); Anion Gap 12.6 mmol/L (4.00-12.00); Calcium 8.6 mg/dL (8.7-10.3); Carbon Dioxide 23.4 mmol/L (21.6-31.8); Non-African American GFR(CKD) 119.7 (60.0-200.0); Potassium 5.1 mmol/L (3.5-5.5)
--- NOTE | 2020-11-11 14:14 | P.PN ---
Subjective Progress Note Date: 11/11/20 Principal diagnosis: COVID-19 pneumonia This is a very pleasant 45-year-old gentleman who follows with Dr. Foote as his primary care provider. He has a history of hyperlipidemia, hypertension, hypothyroidism, sarcoidosis previously treated by Dr. Rodriguez in 2009 with no pulmonary symptoms since then. On October 25 patient developed a headache, loss of smell, worsening shortness of breath. He was tested positive for COVID-19 on 10/27/2020. His shortness of breath has progressed and gotten worse and he presented here to the emergency room yesterday. Chest x-ray reveals bilateral extensive pneumonia. CT angiogram ruled out pulmonary embolism. There is moderate scattered patchy groundglass opacities and interstitial infiltrates consistent with COVID-19 pneumonia. Suspect reactive bilateral hilar and mediastinal lymphadenopathy measuring up to 2.3 cm. He is seen today in consultation in the emergency room. He is currently sitting up on the stretcher. Awake and alert. In mild respiratory distress. Requiring 6 L high flow nasal cannula to maintain O2 saturation in the low 90s. T-max of 102.4. White count 6.1. Hemoglobin 13.9. Lymphocytes 0.5. D-dimer 0.76. Sodium 136. Potassium 3.9. Creatinine 0.70. Glucose 103. AST 115. ALT 129. LDH 1435. C-reactive protein 18.7. Troponin negative 1. He has been initiated on dexamethasone, Lovenox, vitamin supplements. 0.9 normal saline at 100 ML's per hour. Progress note dated 11/06/2020. 45-year-old male seen yesterday in consultation. The patient has a history of hyperlipidemia, hypertension, hypothyroidism, and inactive sarcoidosis. The patient was seen in the emergency department yesterday. He came with increasing shortness of breath. He tested positive for coronavirus on 10/27/2000. CT angiogram ruled out pulmonary embolism. It did show extensive bilateral infiltrates. Chest x-ray was also abnormal. Currently laboratory data includes a white count of 14.56, hemoglobin 12, hematocrit 36.6, and platelet count 393,000. D-dimer was 1.18. The patient is outside the window for REM, and was started on dexamethasone, Lovenox, vitamin C, vitamin D3, and zinc. Currently, he's on 9 L high flow nasal O2. His saturations are in the low 90s. The patient is seen today 11/07/2020 in follow-up on the regular medical floor. He is currently sitting up in bed. Awake and alert in no acute distress. He is feeling somewhat weak and tired still. Dyspneic with minimal exertion. M aintaining O2 saturations in the 90s on 10 L high flow nasal cannula. No new labs today. He is continued on vitamin supplements, dexamethasone, Lovenox. The patient is seen today 11/08/2020 in follow-up on the regular medical floor. He is currently sitting up in bed. Awake and alert in no acute distress. States he is breathing a bit easier today compared to yesterday. Still requiring 12 L high flow nasal cannula to maintain O2 saturations 88-90%. He's been afebrile. Hemodynamically stable. Today's chest x-ray reveals continued diffuse bilateral opacities. D-dimer 25.0. LDH 534. C-reactive protein 5.0. Remains on Lovenox, dexamethasone, vitamin supplements. Working well with the incentive spirometer. Repositioning himself frequently in bed. On 11/09/2020 patient seen in follow-up on medical surgical floor. Is currently on 11 L of oxygen, and his pulse ox between 89-90%, he states his breathing is improving, no cough, no chest discomfort, he is afebrile, hemodynamically stable, he is status post Toci yesterday on 11/08/2020, he continues on Decadron 6 mgram twice daily, and his Lovenox dose was adjusted yesterday in view of increased d-dimer, CTA chest on 11/05/2020 showed no evidence of pulmonary embolism. Lower extremity Dopplers are pending at this time On 11/10/2020 patient seen in follow-up on medical surgical floor. He is currently on 11 L of oxygen his pulse ox is 89%, he is breathing comfortably, denies any worsening dyspnea or cough, he is resting comfortably in bed, he's had no fever or chills, vital signs have been stable, at rest his respirations are nonlabored, he does become short of breath with exertion. Today's labs have been reviewed, d-dimer is improving, but still elevated at 18.8, electrolytes and renal profile are within normal, LDH is improving. CRP level is pending, lower extremity Dopplers were completed showing no evidence of DVT. Patient is currently on Lovenox 50 mg subcu twice daily and he remains on Decadron 6 Mg Twi ce Daily. On 11/11/2020 patient seen in follow-up on medical surgical floor. He is currently down to 9 L of oxygen pulse ox of 92%, he is resting comfortably in bed, he seems to be breathing comfortably, appears to be in no acute distress, he is afebrile, vital signs have been stable, no complaints of chest discomfort, worsening dyspnea or cough, his d-dimer is improving on today's labs, and is down to 8.6, electrolytes and renal profile were unremarkable, his inflammatory markers were improving on yesterday's labs, he remains on Decadron 6 mg twice daily, and Lovenox at 50 mg twice daily. Objective - Vital Signs Vital signs: Vital Signs Temp 98.0 F 11/11/20 10:00 Pulse 67 11/11/20 10:00 Resp 16 11/11/20 10:00 BP 133/86 11/11/20 10:00 Pulse Ox 92 L 11/11/20 11:42 Intake & Output 11/10/20 11/11/20 11/11/20 18:59 06:59 18:59 Intake Total 360 960 600 Output Total 700 Balance 360 260 600 Intake: Oral 360 960 600 Output: Urine 700 Other: Voiding Method Toilet # Voids 5 3 # Bowel Movements 1 - Exam GENERAL EXAM: Alert, very pleasant, 45-year-old white male on 9 L of oxygen and the pulse ox of 92% comfortable in no apparent distress. HEAD: Normocephalic/atraumatic. EYES: Normal reaction of pupils, equal size. Conjunctiva pink, sclera white. NOSE: Clear with pink turbinates. THROAT: No erythema or exudates. NECK: No masses, no JVD, no thyroid enlargement, no adenopathy. CHEST: No chest wall deformity. Symmetrical expansion. LUNGS: Equal air entry with bibasilar crackles CVS: Regular rate and rhythm, normal S1 and S2, no gallops, no murmurs, no rubs ABDOMEN: Soft, nontender. No hepatosplenomegaly, normal bowel sounds, no guarding or rigidity. EXTREMITIES: No clubbing, no edema, no cyanosis, 2+ pulses and upper and lower extremities. MUSCULOSKELETAL: Muscle strength and tone normal. SPINE: No scoliosis or deformity SKIN: No rashes CENTRAL NERVOUS SYSTEM: Alert and oriented -3. No focal deficits, tone is normal in all 4 extremities. PSYCHIATRIC: Alert and oriented -3. Appropriate affect. Intact judgment and insight. - Labs CBC & Chem 7: 11/06/20 06:55 11/11/20 06:25 Labs: Abnormal Lab Results - Last 24 Hours (Table) 11/10/20 11/11/20 11/11/20 Range/Units 07:15 06:25 06:25 D-Dimer 8.60 H (<0.60) mg/L FEU Anion Gap 12.60 H (4.00-12.00) mmol/L BUN/Creatinine Ratio 40.00 H (12.00-20.00) Ratio Glucose 134 H (70-110) mg/dL Calcium 8.6 L (8.7-10.3) mg/dL C-Reactive Protein 4.0 H (0.0-0.8) mg/dL Assessment and Plan Plan: Assessment: #1. Acute hypoxic respiratory failure secondary to acute COVID-19 pneumonia, patient was outside the window for Remdesivir, patient developed worsening hypoxia and on 11/08/2020 received a dose of Tocilizumab #2. Elevated some inflammatory markers related to the above, improving #3. Elevated d-dimer, peaked at 25.03, no CTA evidence of pulmonary embolism, rule out possibility of lower extremity DVT #4. Elevated transaminases related to viral pneumonia #5. History of sarcoidosis, inactive in stable #6. Hypertension #7. Hypothyroidism #8. Hyperlipidemia Plan: Continue weaning FiO2 to keep O2 sat at or above 90% Currently at 9 l/min high flow oxygen Continue current dose Lovenox We'll obtain a follow-up d-dimer tomorrow Continue current dose Decadron Overall seems to be improving I performed a history & physical examination of the patient and discussed their management with my nurse practitioner, Lili Shaikh. I reviewed the nurse practitioner's note and agree with the documented findings and plan of care. Lung sounds are positive for bibasilar rales. The findings and the impression was discussed with the patient. I attest to the documentation by the nurse practitioner. Time with Patient: Less than 30
[2020-11-11] MEDS: IBUPROFEN 400 MG TAB PO PRN (20:26)
[2020-11-12] MEDS: LEVOTHYROXINE 100 MCG TAB PO SCH (05:30)
[2020-11-12] MEDS: ENOXAPARIN 60 MG/0.6 ML SYRINGE SQ SCH ×2 (08:05→20:36)
[2020-11-12] MEDS: CHOLECALCIFEROL 25 MCG (1000 IU) TABLET PO SCH (08:06)
[2020-11-12] MEDS: ASCORBIC ACID 500 MG TAB PO SCH ×2 (08:06→20:36)
[2020-11-12] MEDS: BENZONATATE 100 MG CAP PO SCH ×4 (08:06→20:39)
[2020-11-12] MEDS: FAMOTIDINE 20 MG TAB PO SCH ×2 (08:06→20:36)
[2020-11-12] MEDS: LOSARTAN 50 MG TAB PO SCH ×2 (08:06→08:09)
[2020-11-12] MEDS: DEXAMETHASONE SOD PHOSPHATE 10 MG/ML 1 ML VIAL IV SCH ×2 (08:06→20:36)
[2020-11-12] MEDS: ZINC SULFATE 220 MG CAP PO SCH (08:06)
[2020-11-12] MEDS: FENOFIBRATE 160 MG TAB PO SCH (08:06)
[2020-11-12] MEDS: hydroCHLOROthiazide 25 MG TAB PO SCH (08:06)
--- NOTE | 2020-11-12 09:26 | P.PN ---
Subjective 45-year-old male admitted for Covid 19 pneumonia, out of window for Remdesivir. Patient respiratory status has worsened and the patient is presently on 9 L as opposed to 6 L of oxygen as today patient feels little bit better clinically. Still bit short of breath. 11/10/2020 Patient is presently on 10 L of oxygen and appears to have marginal improvement compared to yesterday. Patient had a CT angios the chest which did not show any pulmonary embolism. Patient continues to be on Decadron. Patient overall feeling better patient shortness of breath did improve and not feeling short of breath on oxygen. 11/11/2020 Patient is saturating well on level liters of oxygen. Patient d-dimer has come down significantly. Patient feels better. Patient is coughing up. 11/12/2020 Patient is clinically doing well is presently on 80 this of onset and hopefully in a day or 2 patient will be been able to go home most probably with oxygen. Constitutional: Denied any fatigue denied any fever. Cardio vascular: denied any chest pain, palpitations Gastrointestinal denied any nausea vomiting Pulmonary: As mentioned in the interval history Neurologic denied any new focal deficits All inpatient medications were reviewed and appropriate changes in these medications as dictated in the interval history and assessment and plan. Objective - Vital Signs Vital signs: Vital Signs Temp 98.6 F 11/12/20 05:32 Pulse 77 11/12/20 05:32 Resp 18 11/12/20 05:32 BP 125/81 11/12/20 05:32 Pulse Ox 95 11/12/20 05:32 Intake & Output 11/11/20 11/12/20 11/12/20 18:59 06:59 18:59 Intake Total 600 1000 Output Total 600 Balance 600 400 Intake: Oral 600 1000 Output: Urine 600 Other: Voiding Method Toilet Toilet # Voids 3 - Exam PHYSICAL EXAMINATION: GENERAL: The patient is alert and oriented x3, not in any acute distress. Obese HEENT: Pupils are round and equally reacting to light. EOMI. No scleral icterus. No conjunctival pallor. Normocephalic, atraumatic. No pharyngeal erythema. No thyromegaly. CARDIOVASCULAR: S1 and S2 present. No murmurs, rubs, or gallops. PULMONARY: Chest is clear to auscultation, no wheezing or crackles. ABDOMEN: Soft, nontender, nondistended, normoactive bowel sounds. No palpable organomegaly. MUSCULOSKELETAL: No joint swelling or deformity. EXTREMITIES: No cyanosis, clubbing, or pedal edema. NEUROLOGICAL: Gross neurological examination did not reveal any focal deficits. SKIN: No rashes. - Labs CBC & Chem 7: 11/06/20 06:55 11/11/20 06:25 Labs: Abnormal Lab Results - Last 24 Hours (Table) 11/11/20 Range/Units 06:25 Anion Gap 12.60 H (4.00-12.00) mmol/L BUN/Creatinine Ratio 40.00 H (12.00-20.00) Ratio Glucose 134 H (70-110) mg/dL Calcium 8.6 L (8.7-10.3) mg/dL Assessment and Plan Plan: -Acute hypoxic respiratory failure secondary to COVID-19 pneumonia: Patient is outside of the window for from this event and patient is presently on Decadron, vitamins. Patient is presently on 8 L of oxygen, patient is saturating well on liver liters will cut down the oxygen. Ruled out pulmonary embolism to CT angios the chest. Lower extremity Dopplers are negative for DVT. Because of highly elevated d-dimer patient is on Lovenox 50 twice a day coming down -Elevated liver enzymes her transaminitis secondary to COVID-19, repeat CMP tomorrow -Hypertension -Hypothyroidism -Hyperlipidemia -History of sarcoidosis. -Due to prophylaxis with history of prophylaxis with Protonix
[2020-11-12 15:58] VITALS: BMI 34.5
--- NOTE | 2020-11-12 16:04 | P.PN ---
Subjective Progress Note Date: 11/12/20 Principal diagnosis: COVID-19 pneumonia This is a very pleasant 45-year-old gentleman who follows with Dr. Foote as his primary care provider. He has a history of hyperlipidemia, hypertension, hypothyroidism, sarcoidosis previously treated by Dr. Rodriguez in 2009 with no pulmonary symptoms since then. On October 25 patient developed a headache, loss of smell, worsening shortness of breath. He was tested positive for COVID-19 on 10/27/2020. His shortness of breath has progressed and gotten worse and he presented here to the emergency room yesterday. Chest x-ray reveals bilateral extensive pneumonia. CT angiogram ruled out pulmonary embolism. There is moderate scattered patchy groundglass opacities and interstitial infiltrates consistent with COVID-19 pneumonia. Suspect reactive bilateral hilar and mediastinal lymphadenopathy measuring up to 2.3 cm. He is seen today in consultation in the emergency room. He is currently sitting up on the stretcher. Awake and alert. In mild respiratory distress. Requiring 6 L high flow nasal cannula to maintain O2 saturation in the low 90s. T-max of 102.4. White count 6.1. Hemoglobin 13.9. Lymphocytes 0.5. D-dimer 0.76. Sodium 136. Potassium 3.9. Creatinine 0.70. Glucose 103. AST 115. ALT 129. LDH 1435. C-reactive protein 18.7. Troponin negative 1. He has been initiated on dexamethasone, Lovenox, vitamin supplements. 0.9 normal saline at 100 ML's per hour. Progress note dated 11/06/2020. 45-year-old male seen yesterday in consultation. The patient has a history of hyperlipidemia, hypertension, hypothyroidism, and inactive sarcoidosis. The patient was seen in the emergency department yesterday. He came with increasing shortness of breath. He tested positive for coronavirus on 10/27/2000. CT angiogram ruled out pulmonary embolism. It did show extensive bilateral infiltrates. Chest x-ray was also abnormal. Currently laboratory data includes a white count of 14.56, hemoglobin 12, hematocrit 36.6, and platelet count 393,000. D-dimer was 1.18. The patient is outside the window for REM, and was started on dexamethasone, Lovenox, vitamin C, vitamin D3, and zinc. Currently, he's on 9 L high flow nasal O2. His saturations are in the low 90s. The patient is seen today 11/07/2020 in follow-up on the regular medical floor. He is currently sitting up in bed. Awake and alert in no acute distress. He is feeling somewhat weak and tired still. Dyspneic with minimal exertion. M aintaining O2 saturations in the 90s on 10 L high flow nasal cannula. No new labs today. He is continued on vitamin supplements, dexamethasone, Lovenox. The patient is seen today 11/08/2020 in follow-up on the regular medical floor. He is currently sitting up in bed. Awake and alert in no acute distress. States he is breathing a bit easier today compared to yesterday. Still requiring 12 L high flow nasal cannula to maintain O2 saturations 88-90%. He's been afebrile. Hemodynamically stable. Today's chest x-ray reveals continued diffuse bilateral opacities. D-dimer 25.0. LDH 534. C-reactive protein 5.0. Remains on Lovenox, dexamethasone, vitamin supplements. Working well with the incentive spirometer. Repositioning himself frequently in bed. On 11/09/2020 patient seen in follow-up on medical surgical floor. Is currently on 11 L of oxygen, and his pulse ox between 89-90%, he states his breathing is improving, no cough, no chest discomfort, he is afebrile, hemodynamically stable, he is status post Toci yesterday on 11/08/2020, he continues on Decadron 6 mgram twice daily, and his Lovenox dose was adjusted yesterday in view of increased d-dimer, CTA chest on 11/05/2020 showed no evidence of pulmonary embolism. Lower extremity Dopplers are pending at this time On 11/10/2020 patient seen in follow-up on medical surgical floor. He is currently on 11 L of oxygen his pulse ox is 89%, he is breathing comfortably, denies any worsening dyspnea or cough, he is resting comfortably in bed, he's had no fever or chills, vital signs have been stable, at rest his respirations are nonlabored, he does become short of breath with exertion. Today's labs have been reviewed, d-dimer is improving, but still elevated at 18.8, electrolytes and renal profile are within normal, LDH is improving. CRP level is pending, lower extremity Dopplers were completed showing no evidence of DVT. Patient is currently on Lovenox 50 mg subcu twice daily and he remains on Decadron 6 Mg Twi ce Daily. On 11/11/2020 patient seen in follow-up on medical surgical floor. He is currently down to 9 L of oxygen pulse ox of 92%, he is resting comfortably in bed, he seems to be breathing comfortably, appears to be in no acute distress, he is afebrile, vital signs have been stable, no complaints of chest discomfort, worsening dyspnea or cough, his d-dimer is improving on today's labs, and is down to 8.6, electrolytes and renal profile were unremarkable, his inflammatory markers were improving on yesterday's labs, he remains on Decadron 6 mg twice daily, and Lovenox at 50 mg twice daily. On 11/12/2020 patient seen in follow-up on medical surgical floor. Is currently on 8 L of oxygen his pulse ox is between 87-91%, he's been afebrile, hemodynamically he remains stable, looks very comfortable at rest, his been resting in bed, and he was advised to get up out of bed and sit in a chair today, lung sounds reveal diminished breath sounds at the scattered crackles, only occasional cough, complaints of chest discomfort. labs have been reviewed, d-dimer continues to trend down on yesterday's labs down to 8.6, electrolytes within normal limits, renal profile was unremarkable, maternal markers were improving. Patient continues on Decadron 6 mg IV twice daily, and he is on Lovenox at 50 mg twice daily. Objective - Vital Signs Vital signs: Vital Signs Temp 98.5 F 11/12/20 14:00 Pulse 74 11/12/20 14:00 Resp 20 11/12/20 14:00 BP 122/81 11/12/20 14:00 Pulse Ox 91 L 11/12/20 14:00 Intake & Output 11/11/20 11/12/20 11/12/20 18:59 06:59 18:59 Intake Total 600 1000 Output Total 600 Balance 600 400 Intake: Oral 600 1000 Output: Urine 600 Other: Voiding Method Toilet Toilet # Voids 3 - Exam GENERAL EXAM: Alert, very pleasant, 45-year-old white male on 8 L of oxygen and the pulse ox of 91% comfortable in no apparent distress. HEAD: Normocephalic/atraumatic. EYES: Normal reaction of pupils, equal size. Conjunctiva pink, sclera white. NOSE: Clear with pink turbinates. THROAT: No erythema or exudates. NECK: No masses, no JVD, no thyroid enlargement, no adenopathy. CHEST: No chest wall deformity. Symmetrical expansion. LUNGS: Equal air entry with bibasilar crackles CVS: Regular rate and rhythm, normal S1 and S2, no gallops, no murmurs, no rubs ABDOMEN: Soft, nontender. No hepatosplenomegaly, normal bowel sounds, no guarding or rigidity. EXTREMITIES: No clubbing, no edema, no cyanosis, 2+ pulses and upper and lower extremities. MUSCULOSKELETAL: Muscle strength and tone normal. SPINE: No scoliosis or deformity SKIN: No rashes CENTRAL NERVOUS SYSTEM: Alert and oriented -3. No focal deficits, tone is normal in all 4 extremities. PSYCHIATRIC: Alert and oriented -3. Appropriate affect. Intact judgment and insight. - Labs CBC & Chem 7: 11/06/20 06:55 11/11/20 06:25 Assessment and Plan Plan: Assessment: #1. Acute hypoxic respiratory failure secondary to acute COVID-19 pneumonia, patient was outside the window for Remdesivir, patient developed worsening hypoxia and on 11/08/2020 received a dose of Tocilizumab #2. Elevated some inflammatory markers related to the above, improving #3. Elevated d-dimer, peaked at 25.03, no CTA evidence of pulmonary embolism, rule out possibility of lower extremity DVT #4. Elevated transaminases related to viral pneumonia #5. History of sarcoidosis, inactive in stable #6. Hypertension #7. Hypothyroidism #8. Hyperlipidemia Plan: Continue weaning FiO2 to keep O2 sats ration at 87% or above No worsening dyspnea Vital signs are stable D-dimer is trending down Follow-up on the daily basis Continue current dose Lovenox, will adjust on a daily basis based on the d-dimer Clinically patient is improving, less dyspneic We'll continue to follow I performed a history & physical examination of the patient and discussed their management with my nurse practitioner, Lili Shaikh. I reviewed the nurse practitioner's note and agree with the documented findings and plan of care. Lung sounds are positive for bibasilar rales. The findings and the impression was discussed with the patient. I attest to the documentation by the nurse practitioner. Time with Patient: Less than 30
[2020-11-12] MEDS: IBUPROFEN 400 MG TAB PO PRN (20:37)
[2020-11-13 00:45] VITALS: RESP 18
[2020-11-13] MEDS: LEVOTHYROXINE 100 MCG TAB PO SCH (05:20)
[2020-11-13] MEDS: CHOLECALCIFEROL 25 MCG (1000 IU) TABLET PO SCH (08:32)
[2020-11-13] MEDS: ZINC SULFATE 220 MG CAP PO SCH (08:32)
[2020-11-13] MEDS: BENZONATATE 100 MG CAP PO SCH (08:33)
[2020-11-13] MEDS: FENOFIBRATE 160 MG TAB PO SCH (08:33)
[2020-11-13] MEDS: FAMOTIDINE 20 MG TAB PO SCH (08:33)
[2020-11-13] MEDS: hydroCHLOROthiazide 25 MG TAB PO SCH (08:33)
[2020-11-13] MEDS: ASCORBIC ACID 500 MG TAB PO SCH (08:33)
[2020-11-13] MEDS: LOSARTAN 50 MG TAB PO SCH (08:33)
[2020-11-13] MEDS: ENOXAPARIN 60 MG/0.6 ML SYRINGE SQ SCH (08:33)
[2020-11-13] MEDS: DEXAMETHASONE SOD PHOSPHATE 10 MG/ML 1 ML VIAL IV SCH (08:34)
--- NOTE | 2020-11-13 09:33 | XR ---
EXAMINATION TYPE: XR chest 1V portable DATE OF EXAM: 11/13/2020 CLINICAL HISTORY: Covid. TECHNIQUE: Portable frontal view of the chest. COMPARISON: 11/08/2020 FINDINGS: The cardiomediastinal silhouette is within normal limits for size moderate diffuse interst itial opacities of the bilateral lungs, with similar appearance versus 11/08/2020. No pleural effusion or pneumothorax. IMPRESSION: Similar appearance of moderate diffuse interstitial opacities bilaterally.
--- NOTE | 2020-11-13 09:52 | P.DS ---
Providers Date of admission: 11/05/20 01:00 Attending physician: Erasto Snow Consults: 11/05/20 01:00 Consult Physician Routine Consulting Provider: [place] Yo Consult Reason/Comments: covid Do you want consulting provider notified?: Yes Primary care physician: Marisol Shannon [place] Hospital Course: 45-year-old male admitted for Covid 19 pneumonia, out of window for Remdesivir. Patient respiratory status has worsened and the patient is presently on 9 L as opposed to 6 L of oxygen as today patient feels little bit better clinically. Still bit short of breath. 11/10/2020 Patient is presently on 10 L of oxygen and appears to have marginal improvement compared to yesterday. Patient had a CT angios the chest which did not show any pulmonary embolism. Patient continues to be on Decadron. Patient overall feeling better patient shortness of breath did improve and not feeling short of breath on oxygen. 11/11/2020 Patient is saturating well on level liters of oxygen. Patient d-dimer has come down significantly. Patient feels better. Patient is coughing up. 11/12/2020 Patient is clinically doing well is presently on 80 this of onset and hopefully in a day or 2 patient will be been able to go home most probably with oxygen. 11/13/2020 Patient is presently on 4 L of oxygen and will be discharged on 4 L today. Patient had highly elevated d-dimer up to 25 because of which patient will be discharged on one month of for Eliquis. PE was ruled out with a CT angios the chest. Patient will be discharged on a short taper of steroids patient has been on steroids for 8 days total here and patient will require home oxygen which can be tapered and weaned off as an outpatient. PHYSICAL EXAMINATION: GENERAL: The patient is alert and oriented x3, not in any acute distress. Obese HEENT: Pupils are round and equally reacting to light. EOMI. No scleral icterus. No conjunctival pallor. Normocephalic, atraumatic. No pharyngeal erythema. No thyromegaly. CARDIOVASCULAR: S1 and S2 present. No murmurs, rubs, or gallops. PULMONARY: Chest is clear to auscultation, no wheezing or crackles. ABDOMEN: Soft, nontender, nondistended, normoactive bowel sounds. No palpable organomegaly. MUSCULOSKELETAL: No joint swelling or deformity. EXTREMITIES: No cyanosis, clubbing, or pedal edema. NEUROLOGICAL: Gross neurological examination did not reveal any focal deficits. SKIN: No rashes. Assessment and Plan Plan: -Acute hypoxic respiratory failure secondary to COVID-19 pneumonia: Patient is outside of the window for from this event and patient is presently on Decadron, vitamins. Patient is presently on 4 L of oxygen, patient is saturating well Ruled out pulmonary embolism to CT angios the chest. Lower extremity Dopplers are negative for DVT. Because of highly elevated d-dimer patient will need to be not a coagulation for about a month -Elevated liver enzymes her transaminitis secondary to COVID-19. No worsening of liver enzymes since admission -Hypertension -Hypothyroidism -Hyperlipidemia -History of sarcoidosis. Patient Condition at Discharge: Serious Plan - Discharge Summary Discharge Rx Participant: Yes New Discharge Prescriptions: New Dexamethasone [Decadron] 4 mg PO DAILY #6 tablet Famotidine [Pepcid] 20 mg PO BID #20 tab Apixaban [Eliquis] 5 mg PO BID #60 tab Zinc Sulfate [Orazinc] 220 mg PO DAILY #30 cap Ascorbic Acid [Vitamin C] 500 mg PO BID #30 tab Cholecalciferol [Vitamin D3 (25 Mcg = 1000 Iu)] 125 mcg PO DAILY #30 tablet Continue Fenofibrate 130 mg PO DAILY Levothyroxine Sodium 200 mcg PO DAILY hydroCHLOROthiazide 25 mg PO DAILY Losartan Potassium 100 mg PO DAILY Discharge Medication List Fenofibrate 130 mg PO DAILY 07/19/17 [History] Levothyroxine Sodium 200 mcg PO DAILY 07/19/17 [History] Losartan Potassium 100 mg PO DAILY 11/04/20 [History] hydroCHLOROthiazide 25 mg PO DAILY 11/04/20 [History] Apixaban [Eliquis] 5 mg PO BID #60 tab 11/13/20 [Rx] Ascorbic Acid [Vitamin C] 500 mg PO BID #30 tab 11/13/20 [Rx] Cholecalciferol [Vitamin D3 (25 Mcg = 1000 Iu)] 125 mcg PO DAILY #30 tablet 11/13/20 [Rx] Dexamethasone [Decadron] 4 mg PO DAILY #6 tablet 11/13/20 [Rx] Famotidine [Pepcid] 20 mg PO BID #20 tab 11/13/20 [Rx] Zinc Sulfate [Orazinc] 220 mg PO DAILY #30 cap 11/13/20 [Rx] Follow up Appointment(s)/Referral(s): Marisol Shannon DO [Primary Care Provider] - 3 Days Julian Rodriguez DO [Doctor of Osteopathic Medicine] - 2 Weeks
[2020-11-13 09:59] VITALS: BP 134/84; PULSE 78; TEMP 98.1
[2020-11-13 11:48] LABS: C Reactive Protein 0.4 mg/dL (0.0-0.8)
== END 2020-11-13 14:07 | disposition home or self-care (01) | DRG 177 ==
LOC: EC 20:57 → 4SSUR 11-05 01:00
PROVIDERS: ADMIT Hospitalist; ATTEND Hospitalist
PROC: 3E0333Z Introduction of Anti-inflammatory into Peripheral Vein, Percutaneous Approach (ICD-10-PCS; 2020-11-04)
PROC: 5A0955A Assistance with Respiratory Ventilation, Greater than 96 Consecutive Hours, High Flow/Velocity Cannula (ICD-10-PCS; 2020-11-05)
PROC: XW033H5 Introduction of Tocilizumab into Peripheral Vein, Percutaneous Approach, New Technology Group 5 (ICD-10-PCS; principal; 2020-11-08)
DX: U07.1 COVID-19 (principal); J12.82 Pneumonia due to coronavirus disease 2019; J96.01 Acute respiratory failure with hypoxia; E78.00 Pure hypercholesterolemia, unspecified; E03.9 Hypothyroidism, unspecified; E11.9 Type 2 diabetes mellitus without complications; I10 Essential (primary) hypertension; E78.5 Hyperlipidemia, unspecified; D86.9 Sarcoidosis, unspecified; Z79.890 Hormone replacement therapy; Z87.891 Personal history of nicotine dependence; R74.01 Elevation of levels of liver transaminase levels
CPT/HCPCS: 36415; 71045; 71046; 71275; 80048; 80053; 83605; 83615; 83690; 83735; 84100; 84484; 85025; 85379; 85610; 85730; 86140; 93005; 93970; 94760; 96361; 96374; 96375; 99291

== ENCOUNTER → 2021-01-05 | Outpatient (CLI) | payer OTHER ==
--- NOTE | 2021-01-05 18:26 | CT ---
EXAMINATION TYPE: High-resolution CT chest DATE OF EXAM: 01/05/2021 COMPARISON: 11/05/2020 HISTORY: 45-year-old male J84.10, Pulmonary fibrosis TECHNIQUE: Contiguous high-resolution axial scanning of the chest without IV contrast utilizing 1 mm slice thickness and 1 cm gap or HRCT protocol. Both prone and supine imaging was performed. CT DLP: 268 mGycm Automated exposure control for dose reduction was used. FINDINGS: Heart is normal size without pericardial effusion. Aorta normal caliber with conventional vessel branching anatomy. Scattered nonenlarged mediastinal lymph nodes. Some enlarged hilar lymph nodes are redemonstrated but are either stable or smaller, for example: 1.4 cm lower right paratracheal, unchanged. 1 cm AP window versus 1.5 cm, previously. 1.6 cm subcarinal versus 2.5 cm, previously. 1.7 cm right hilar versus 3.1 cm, previously. There is residual mosaic attenuation and mild central bronchial wall thickening. The previous groundg lass and patchy bilateral infiltrates have largely resolved. There is minimal bronchiolectasis in the lower lungs. No dominant reticular changes. No honeycombing. No thickening of the bronchovascular bundles. No cyst ic changes are identified. Residual groundglass changes Visualized upper abdomen shows moderate to severe hepatic steatosis. Cholecystectomy clips. Bones: No osseous destructive process. IMPRESSION: 1. RESOLUTION OF THE PREVIOUS COVID PNEUMONIA BUT WITH RESIDUAL MOSAIC ATTENUATION. FINDINGS COULD RE FLECT AIR-TRAPPING FROM SMALL AIRWAYS DISEASE. INTERSTITIAL PNEUMONITIS SUCH NSIP OR DIP ARE ALSO CONSIDERATIONS. 2. SOME MINIMAL BASILAR BRONCHIOLECTASIS IS SUGGESTED, PROBABLY A CHRONIC SEQUELA OF PATIENT'S TE OR INFECTION. 3. MEDIASTINAL AND HILAR LYMPHADENOPATHY MEASURING UP TO 1.7 CM IS EITHER STABLE OR SMALLER. THIS LAR GEST 1.7 CM LYMPH NODE PREVIOUSLY MEASURED 3.1 CM. 4. MODERATE TO SEVERE HEPATIC STEATOSIS.
== END | disposition home or self-care (01) ==
LOC: RADCTMAIN 13:06
PROVIDERS: ATTEND Internal Medicine Critical Care Medicine
DX: R59.1 Generalized enlarged lymph nodes (principal); J84.10 Pulmonary fibrosis, unspecified; J12.82 Pneumonia due to coronavirus disease 2019
CPT/HCPCS: 71250

== ENCOUNTER → 2021-03-30 | Outpatient (CLI) | payer OTHER ==
--- NOTE | 2021-03-30 21:39 | CT ---
EXAMINATION TYPE: CT chest wo con DATE OF EXAM: 03/30/2021 COMPARISON: Prior chest CT January 05, 2021 and older CTs. HISTORY: pulmonary fibrosis, covid in October 2020 CT DLP: 1208 mGycm. Automated Exposure Control for Dose Reduction was Utilized. TECHNIQUE: CT scan of the thorax is performed without IV contrast. High resolution protocol with 1 m m sequences obtained at 10 mm intervals in both supine and prone technique. FINDINGS: LUNGS: Interval resolution of prior visualized mosaic attenuation. No suspicious focal groundglass op acity or consolidation currently. No significant peripheral reticulation and/or fibrotic change. No h oneycombing. No pleural effusion or pneumothorax seen bilaterally. No pulmonary masses. MEDIASTINUM: Lack of IV contrast and technique are noted to limit evaluation for mediastinal and naya cially hilar adenopathy. There are continued resolving but prominent hyperdense bilateral hilar and s ubcarinal lymph nodes. No cardiomegaly. Trace pericardial effusion is seen anterior inferior aspect . OTHER: Cholecystectomy clips. Mild fatty infiltration of liver. Suspect peripheral left upper kidney triangular-shaped calcification. Small degree of subareolar gynecomastia is redemonstrated. IMPRESSION: No significant acute or chronic pulmonary parenchymal process currently.
== END | disposition home or self-care (01) ==
LOC: RADCTMAIN 18:10
PROVIDERS: ATTEND Internal Medicine Critical Care Medicine
DX: J84.10 Pulmonary fibrosis, unspecified (principal)
CPT/HCPCS: 71250

== ENCOUNTER → 2022-12-09 | Outpatient (CLI) | payer OTHER ==
--- NOTE | 2022-12-09 17:37 | CA ---
Transthoracic Echo Report Name: Ubaldo Ho Age: 47 Gender: M : 1975 Exam Date: 12/09/2022 13:52 Exam Location: [facility] Ht (in): 72 Wt (lb): 240 Ordering Physician: Marisol Shannon DO Attending/Referring Phys: Dee Harkins [facility] Electric Meter Tester Jane Ruiz RDCS Procedure CPT: Indications: R42 Dizziness Cardiac Hx: Technical Quality: Good Contrast 1: Total Dose (mL): Contrast 2: Total Dose (mL): MEASUREMENTS (Male / Female) Normal Values 2D ECHO LV Diastolic Diameter PLAX 4.5 cm 4.2 - 5.9 / 3.9 - 5.3 cm LV Systolic Diameter PLAX 3.2 cm IVS Diastolic Thickness 1.3 cm 0.6 - 1.0 / 0.6 - 0.9 cm LVPW Diastolic Thickness 1.3 cm 0.6 - 1.0 / 0.6 - 0.9 cm LV Relative Wall Thickness 0.6 RV Internal Dim ED PLAX 3.3 cm LA Systolic Diameter LX 3.7 cm 3.0 - 4.0 / 2.7 - 3.8 cm LV Diastolic Volume MOD 4C 100.0 cm??? LV Systolic Volume MOD 4C 52.4 cm??? LV Ejection Fraction MOD 4C 47.6 % LV Diastolic Length 4C 8.0 cm LV Systolic Length 4C 7.2 cm LV Diastolic Volume MOD 2C 58.2 cm??? LV Systolic Volume MOD 2C 32.0 cm??? LV Ejection Fraction MOD 2C 45.0 % LV Diastolic Length 2C 7.9 cm LV Systolic Length 2C 6.8 cm LA Volume 52.4 cm??? 18 - 58 / 22 - 52 cm??? Ascending Aorta Diameter 3.3 cm M-MODE Aortic Root Diameter MM 3.3 cm MV E Point Septal Separation 0.1 cm AV Cusp Separation MM 2.4 cm DOPPLER AV Peak Velocity 136.6 cm/s AV Peak Gradient 7.5 mmHg MV Area PHT 4.7 cm??? Mitral E Point Velocity 112.0 cm/s Mitral A Point Velocity 72.9 cm/s Mitral E to A Ratio 1.5 MV Deceleration Time 162.3 ms MV E' Velocity 7.4 cm/s Mitral E to MV E' Ratio 15.0 TR Peak Velocity 200.5 cm/s TR Peak Gradient 16.1 mmHg Right Ventricular Systolic Press 20.5 mmHg FINDINGS Left Ventricle Left ventricular ejection fraction is estimated at 50-55 %. Left ventricular cavity size normal. Mild concentric left ventricular hypertrophy. Right Ventricle Mild right ventricular dilatation. Right ventricular systolic pressure within normal limits. Right Atrium Normal right atrial size. Left Atrium Normal left atrial size. Mitral Valve Structurally normal mitral valve. Trace mitral regurgitation. Aortic Valve Trileaflet aortic valve. No aortic valve stenosis or regurgitation. Tricuspid Valve Structurally normal tricuspid valve. Trace to mild tricuspid regurgitation. Pulmonic Valve Structurally normal pulmonic valve. Trace pulmonic regurgitation. Pericardium Normal pericardium. No pericardial effusion. Aorta Normal size aortic root and proximal ascending aorta. CONCLUSIONS Normal LV systolic function Previewed by: Dr. Romeo Glass MD (Electronically Signed) Final Date: 09 December 2022 17:36
== END | disposition home or self-care (01) ==
LOC: RADECHMAIN 13:49
PROVIDERS: ATTEND Family Medicine
DX: R42 Dizziness and giddiness (principal); I10 Essential (primary) hypertension
CPT/HCPCS: 93306